=== PATIENT | female | born 1950 | race Caucasian/White ===

== ENCOUNTER → 2016-12-09 | Outpatient (REF) | payer OTHER | LOC: M LAB REF 17:02 | PROVIDERS: ATTEND Physician Assistant | DX: J02.9 Acute pharyngitis, unspecified (principal) ==

== ENCOUNTER → 2016-12-24 | Outpatient (REF) | payer OTHER | LOC: M LAB REF 11:46 | PROVIDERS: ATTEND Internal Medicine | DX: D51.9 Vitamin B12 deficiency anemia, unspecified (principal) ==

== ENCOUNTER → 2017-01-09 | Outpatient (REF) | payer OTHER | LOC: M LAB REF 10:48 | PROVIDERS: ATTEND Internal Medicine | DX: E87.5 Hyperkalemia (principal); M54.2 Cervicalgia ==

== ENCOUNTER → 2017-01-16 | Outpatient (REF) | payer OTHER | LOC: M LAB REF 16:23 | PROVIDERS: ATTEND Internal Medicine | DX: M54.2 Cervicalgia (principal); E78.5 Hyperlipidemia, unspecified ==

== ENCOUNTER → 2017-07-29 | Outpatient (CLI) | payer OTHER ==
--- NOTE | 2017-07-29 09:31 | REPMRS ---
Patient History The patient states she had a clinical breast exam in 05/31 No known family history of cancer. Digital Woman Screen Mammo: July 29, 2017 - Exam #: [id number] Bilateral CC and MLO view(s) were taken. Technologist: Lynn Hayes, Technologist Prior study comparison: June 03, 2016, digital woman screen mammo performed at [facility] to [facility]. March 19, 2015, digital woman screen mammo performed at [facility] to [facility]. FINDINGS: There are scattered fibroglandular densities. There has been no change in the appearance of the mammogram from the prior studies. There is a mild amount of residual fibroglandular tissue which is fairly symmetric. There is no interval development of dominant mass, architectural distortion, or clustered microcalcification suggestive of malignancy. ASSESSMENT: BI-RADS/ACR category 1 mammogram. Negative. Recommendation Routine screening mammogram in 1 year (for women over age 40). This mammogram was interpreted with the aid of an FDA-approved computer-aided dectection system. Electronically Signed By: Shawn Iniguez MD 07/29/17 0931
== END ==
LOC: M WHC 07:51
PROVIDERS: ATTEND Internal Medicine
DX: Z12.31 Encounter for screening mammogram for malignant neoplasm of breast (principal)

== ENCOUNTER → 2018-05-28 | Outpatient (REF) | payer OTHER ==
[2018-05-28 15:21] LABS: CPK CREATINE PHOSPHOKINASE 277 U/L (26-192); MB/CK RELATIVE INDEX 1.26 (< OR =4); TROPONIN I < 0.02 NG/ML (< 0.10)
== END ==
LOC: M LAB REF 14:55
DX: R00.2 Palpitations (principal)
CPT/HCPCS: 82553

== ENCOUNTER → 2018-07-30 | Outpatient (CLI) | payer OTHER | LOC: M WHC 07:52 | DX: Z12.31 Encounter for screening mammogram for malignant neoplasm of breast (principal) | CPT/HCPCS: 77067 ==

== ENCOUNTER → 2018-11-09 | Outpatient (REF) | payer OTHER | LOC: M LAB REF 10:31 | PROVIDERS: ATTEND Physician Assistant | DX: R30.0 Dysuria (principal) ==

== ENCOUNTER 2018-12-22 10:10 | Inpatient (IN) | payer OTHER, MEDICARE ==
[~2018-12-22] VITALS: Ht 154.9 cm; Wt 80.6 kg
[~2018-12-22 10:10] MED LIST: FOSA70TA PO; HYDR12.55 PO; SIMV10TA2 PO
[2018-12-22 12:02] VITALS: BP 132/90
[2018-12-22] MEDS ORDERED: oxyCODONE 5MG TAB PO PRN (13:00)
[2018-12-22] MEDS ORDERED: CYCLOBENZAPRINE 5MG TABLET PO PRN (13:00)
[2018-12-22] MEDS ORDERED: TRAM50TA2 PO (13:36)
[2018-12-22] MEDS ORDERED: TIMOXEOPD OU (13:36)
[2018-12-22] MEDS ORDERED: CYCL5TAB PO (13:36)
[2018-12-22] MEDS ORDERED: XARE10TA PO (13:36)
[2018-12-22] MEDS ORDERED: SIMV10TA2 PO (13:36)
[2018-12-22 14:00] VITALS: BP 127/58
[2018-12-22] MEDS ORDERED: ONDANSETRON 4 MG TAB (S0181) PO PRN (14:30)
[2018-12-22] MEDS ORDERED: ACETAMINOPHEN TAB 650MG DOSE (2X325MG) PO PRN (14:30)
[2018-12-22] MEDS ORDERED: BISACODYL 5 MG TAB PO PRN (14:30)
[2018-12-22] MEDS ORDERED: MOM 30ML SUSPENSION UDC PO PRN (14:30)
--- NOTE | 2018-12-22 15:05 | HPEPDOC ---
Bottle Gauger Note DATE OF ADMISSION: Dec 22, 2018 at 12:02 SOURCE OF ADMISSION INFORMATION:patient, [facility] records CHIEF COMPLAINT: bilateral hip fracture HISTORY OF PRESENT ILLNESS: 68F with pmh osteoporosis on bisphosphonate, HLD, and chronic ITP s/p splenectomy 2011 who fell at home and initially presented to [facility] ED on 12/15/18 where hip/pelvix X-rays revealed, "There is a transverse, displaced and foreshortened fracture of the right mid femoral shaft and a transverse displaced fracture of the left proximal femoral metaphysis. Underlying age-related degenerative changes of the pelvis and hips noted." She was transferred to [facility] where she was cleared by medicine and orthopedics was consulted. She then underwent an ORIF of the left subtrochanteric femur fracture with intramedullary aime, a left proximal femur osteotomy, and an ORIF of the right fe moral shaft with OM aime and prophylactic treatment of an impending right proximal femur fracture with IM aime placement. There were no post-op complication and patient was made WBAT to bilateral LE and placed on DVT prophylaxis. She continued to have bilateral thigh muscle spasms which she reports is a side effect from her Zocor, but wishes to continue on the medication for her recently elevated cholesterol levels. Her hydrochlorothiazide was held for soft BPs and she was given 2 units of rbcs for blood loss anemia. She had post-op atelectasis with fevers which resolved with incentive spirometry and supplemental oxygen. She was evaluated by therapy and found to be below her baseline level of function requiring assistance with ambulation and ADLs. She was deemed medically appropriate for discharge to ARU on 12/22/18. REVIEW OF SYSTEMS: The following is a completed review of systems and has been reviewed. Review of systems otherwise unremarkable. PAIN: Patient self reports bilateral thigh cramping EYES: Negative for recent vision changes EARS, NOSE, & THROAT:denies rhinorrhea, throat pain or dysphagia CARDIOVASCULAR: denies chest pain or palpitations PULMONARY: Negative. Denies shortness of breath or cough GASTROINTESTINAL: Negative for constipation or diarrhea GENITOURINARY: Negative for dysuria MUSCULOSKELETAL: bilateral femur fractures NEUROLOGICAL: no tremor or seizure activity HEMATOLOGICAL: anemia SKIN: bilateral hip incisions and grace-wound blisters PSYCHIATRIC: Unremarkable All other review of systems found to be negative. PAST MEDICAL HISTORY: as per HPI PAST SURGICAL HISTORY: none ALLERGIES: Please see below. MEDICATIONS: Please see below. FAMILY HISTORY: CHF and arthritis SOCIAL HISTORY: Currently works as payroll accountant, denies smoking/ETOH/drugs, lives alone DIET: Regular PHYSICAL EXAMINATION: VITAL SIGNS: Please see below. GENERAL: Pleasant and cooperative. No acute distress. HEENT: PERRL. Extraocular movements intact. Clear conjunctiva CARDIOVASCULAR: Regular rate and rhythm. No murmurs, rubs, or gallops LUNGS: Clear to auscultation bilaterally. No wheezes. No rhonchi ABDOMEN: Soft, nontender, nondistended. Positive bowel sounds. Normal active bowel sounds NEUROLOGICAL: Alert and oriented times three. Cranial nerves II through XII isabella ssly intact. Sensation grossly intact including bilateral first web space EXTREMITIES: 5\\5 strength bilateral upper extremities. 5\\5 strength bilat DF and EHL, >4/5 knee extension however limited overall due to surgery. SKIN: bilateral incisions with grace-wound blisters, no induration, sacrum without ulcer IMAGING: Imaging documentation personally reviewed by record FUNCTIONAL STATUS: Premorbid: Independent with all activities of daily life as well as mobility On Admission: Requiring assist of 2 to stand with RW, Mod-Max assist for functional transfers. GOALS: Mod-I with RW for ambulation household distances, Supervision with stairs, Mod-I for bathing, toileting, grooming, medical optimization, pain management, family training, assess for DME needs. ASSESSMENT:68-year-old F with past medical history of osteoporosis who presents status post fall with bilateral femur fractures PLAN: 1. Rehab: PT/OT, assess for DME- 2. Ortho: s.p bilateral femur ORIF on 12/16/18 WBAT, f/u with ortho in 2 weeks 3. Neuro: stable- monitor for delirium 4. Cardio; pmh HLD on Zocor, however complaining of chronic hx muscle cramping, will c/u for now- holding HCTZ for now as well as recent hx of soft BPs-medicine consulted 5. Resp: recent fever with atelectasis- encourge incentive spirometry, stable now 6. : f/u admission UA and UCx monitor PVRs 7. GI ppx: Protonix, bowel meds 8. DVT ppx: Xarelto x 6 weeks, TEds 9. Skin: daily dressing changes, will try paper tape to secure as concerned for allergic reaction to adhesive causing blister formation at areas of contact with adhesive 10. Pain: tramadol, Tylenol, ice, will trial gabapentin 100mh QHS 11. Rheum: pmh osteoporosis, will add Calcium and vitamin D 11. Dispo: TBD POST ADMISSION PHYSICIAN EVALUATION: Medical and functional status: Description of medical status, medical assessment: As above. Rehabilitation diagnosis and current and prior cold morbid medical conditions as above. Risk of complications and plans to mitigate them as above. Description of functional status current status is as above. Prior status as above. Status compared to preadmission: There are no clinically significant differences between the patient's current status and the information described on the prea dmission screening document. Treatment plan anticipated: Treatment plan is as described above. Required disciplines including physical therapy, occupational therapy, others as noted above. Intensity of services: 3 hours a day, 6 days a week. Special considerations: There are no specific special or safety considerations that would likely preclude immediate implementation of an intensive rehabilitation program or subsequently influence the plan of care ATTESTATION: Considering all the information above, it is my best judgment that this patient requires intensive rehabilitation therapy as described above and an inpatient hospital environment due to the complexity of nursing, medical, and rehabilitation needs required by the patient. Furthermore, this patient can reasonably be expected to participate in an benefit from an inpatient rehabilitation stay with an interdisciplinary team approach to the delivery of rehabilitation care under the direction and supervision of rehabilitation physician. PROGNOSIS: Excellent ESTIMATED LENGTH OF STAY:24-28 days. PROJECTED DISCHARGE DESTINATION: Home with family support and any durable medical equipment required to increase functional safety and mobility TIME SPENT COUNSELING AND COORDINATING INITIAL CARE: Greater than 70 minutes. Vital Signs Vital Sign - Last 24 Hours 12/22/18 12/22/18 12:02 14:00 Temp 97.2 98.6 Pulse 88 84 Resp 16 16 B/P (MAP) 132/90 (104) 127/58 (81) Pulse Ox 93 98 Home Medications Scheduled Rivaroxaban (Xarelto) 10 Mg Tablet, 10 MG PO QPM, (Reported) TAKE WITH DINNER Simvastatin (Simvastatin) 10 Mg Tablet, 10 MG PO QHS, (Reported) Timolol Maleate (Timolol Maleate) 5 Ml Diane.gel, 1 DROP OU DAILY, (Reported) Scheduled PRN Cyclobenzaprine HCl (Cyclobenzaprine HCl) 5 Mg Tablet, 5 MG PO BID PRN for MUSCLE SPASMS, (Reported) Tramadol HCl (Tramadol HCl) 50 Mg Tablet, 50 MG PO Q6H PRN for pain, (Reported) Allergies Coded Allergies: oxycodone (Unverified Adverse Reaction, Mild, N/V, 12/22/18) OK POLANCO MD Dec 22, 2018 15:05
--- NOTE | 2018-12-22 15:38 | CR ---
DATE OF CONSULTATION: 12/22/2018 CONSULTATION REPORT FOR: Dr. Gusman PRIMARY CARE PROVIDER: Dr. Ursula Kirk This is a hospitalist consult for medical care on Inés Alanis who had bilateral femur fractures treated at [facility] and transferred back here for rehabilitation. She has a past medical history significant for chronic idiopathic thrombocytic purpura (ITP), status post splenectomy in 2011, hyperlipidemia, and osteoporosis on bisphosphonate therapy. She had some acute blood loss anemia and she was transfused at [facility]. She had some atelectasis, resolved with spirometry. MEDICATIONS: - Xarelto 10 mg daily - simvastatin 10 mg at bedtime - Timolol eye drops - cyclobenzaprine 5 mg twice a day as needed - tramadol 50 mg every six hours as needed ALLERGIES: CODEINE. SOCIAL HISTORY: Nonsmoker. No alcohol. CODE STATUS: Full code. PHYSICAL EXAMINATION: VITAL SIGNS: Per flow sheet. GENERAL APPEARANCE: She is alert, conversant, in no distress. LUNGS: Clear. HEART: Regular rate and rhythm without murmur. ABDOMEN: Soft, nontender. EXTREMITIES: No peripheral edema. Good distal pulses. MENTAL STATUS EXAMINATION: Unremarkable. LABORATORY DATA: From [facility] were reviewed. IMPRESSION: 1. History of idiopathic thrombocytic purpura (ITP), status post splenectomy. She is anticoagulated on Xarelto. Baseline laboratories ordered. 2. Hyperlipidemia. Continue with simvastatin. She is on a dose that is no longer advised under current hyperlipidemia guidelines but we will defer to her primary as far as adjusting this. Hospitalist service available for medical problems should they arise.
[2018-12-22] MEDS: ACETAMINOPHEN 500 MG TAB PO SCH ×2 (16:09→20:39)
[2018-12-22] MEDS: PANTOPRAZOLE 40MG TAB (PROTONIX) PO SCH (16:09)
[2018-12-22] MEDS: RIVAROXABAN 10 MG TAB (XARELTO) PO SCH (17:04)
[2018-12-22 20:00] VITALS: BP 126/58
[2018-12-22 20:28] LABS: APPEARANCE, URINE CLEAR (CLEAR); BACTERIA, URINE AUTO 1+ (NEGATIVE); BILIRUBIN, URINE AUTO NEGATIVE (NEGATIVE); BLOOD, URINE BLOOD 2+ (NEGATIVE); COLOR, URINE STRAW (YELLOW); GLUCOSE, URINE (UA) AUTO NEGATIVE (NEGATIVE); KETONE, URINE AUTO NEGATIVE (NEGATIVE); LEUKOCYTE ESTERASE, URINE AUTO 2+ (NEGATIVE); MUCUS, URINE SMALL (NEGATIVE); NITRITE, URINE AUTO NEGATIVE (NEGATIVE); PROTEIN, URINE AUTO NEGATIVE (NEGATIVE); RBC, URINE AUTO 4 /HPF (0-3); SPECIFIC GRAVITY URINE AUTO 1.006 (1.002-1.035); SQUAMOUS EPITHELIAL CELL UR AU 1 /HPF (0-6); UROBILINOGEN, URINE AUTO 0.2 mg/dL (0.0-2.0); WBC, URINE AUTO 7 /HPF (0-3)
[2018-12-22] MEDS: SIMVASTATIN 10 MG TAB PO SCH (20:39)
[2018-12-22] MEDS: CALCIUM/VITAMIN D 500 MG TAB PO SCH (20:39)
[2018-12-22] MEDS: MAGNESIUM OXIDE 400 MG TAB (MAG-OX) PO SCH (20:40)
[2018-12-22] MEDS: DOCUSATE SODIUM 100 MG CAP PO SCH (20:40)
[2018-12-22] MEDS: BOUDREAUX'S BUTT PASTE 4OZ TOP SCH (20:40)
[2018-12-22] MEDS ORDERED: SIMVASTATIN 10 MG TAB PO SCH (21:00)
[2018-12-22] MEDS ORDERED: GABAPENTIN 100 MG CAP PO SCH (21:00)
[2018-12-23 06:00] VITALS: BP 132/64
[2018-12-23 06:35] LABS: BASO # 0.1 10^3/uL (0.0-0.2); BASO % 0.6 % (0.0-1.0); EOS # 0.5 10^3/uL (0.0-0.50); EOS % 4.1 % (0.0-3.0); HEMATOCRIT 29.5 % (36.0-47.0); HEMOGLOBIN 9.7 g/dl (12.0-15.5); LYMPH # 1.8 10^3/uL (1.5-4.5); LYMPH % 15.6 % (24.0-44.0); MEAN CORPUSCULAR HEMOGLOBIN 31.4 pg (27.0-33.0); MEAN CORPUSCULAR HGB CONC 32.9 g/dl (32.0-36.5); MEAN CORPUSCULAR VOLUME 95.5 fl (80.0-96.0); MONO # 1.4 10^3/uL (0.0-0.8); MONO % 12.4 % (0.0-5.0); NEUTROPHILS # 7.4 10^3/uL (1.8-7.7); NEUTROPHILS % 66.6 % (36.0-66.0); PLATELET COUNT, AUTOMATED 469 10^3/uL (150-450); RED BLOOD COUNT 3.09 10^6/uL (4.00-5.40); WHITE BLOOD COUNT 11.2 10^3/uL (4.0-10.0)
[2018-12-23] MEDS: traMADol 50 MG TAB PO PRN ×3 (06:38→21:12)
[2018-12-23 07:00] LABS: ALBUMIN 2.5 GM/DL (3.2-5.2); ALT/SGPT 56 U/L (12-78); BILIRUBIN,TOTAL 0.5 MG/DL (0.2-1.0); BLOOD UREA NITROGEN 14 MG/DL (7-18); CALCIUM LEVEL 8.8 MG/DL (8.8-10.2); CARBON DIOXIDE LEVEL 28 MEQ/L (21-32); CHLORIDE LEVEL 107 MEQ/L (98-107); GLOMERULAR FILTRATION RATE > 60.0 (>45); GLUCOSE, FASTING 89 MG/DL (70-100); SODIUM LEVEL 139 MEQ/L (136-145); TOTAL PROTEIN 6.6 GM/DL (6.4-8.2)
[2018-12-23] MEDS: DOCUSATE SODIUM 100 MG CAP PO SCH ×2 (07:55→21:12)
[2018-12-23] MEDS ORDERED: TIMOLOL XE GFS 0.5% OPHTH 5 ML OU SCH (09:00)
[2018-12-23] MEDS: CALCIUM/VITAMIN D 500 MG TAB PO SCH ×2 (09:20→21:11)
[2018-12-23] MEDS: MAGNESIUM OXIDE 400 MG TAB (MAG-OX) PO SCH ×2 (09:21→21:11)
[2018-12-23] MEDS: PANTOPRAZOLE 40MG TAB (PROTONIX) PO SCH (09:21)
[2018-12-23] MEDS: ACETAMINOPHEN 500 MG TAB PO SCH ×3 (09:21→21:12)
[2018-12-23] MEDS: BOUDREAUX'S BUTT PASTE 4OZ TOP SCH ×2 (09:22→21:13)
--- NOTE | 2018-12-23 10:23 | IPNPDOC ---
PM&R Progress Note DATE OF SERVICE: Dec 23, 2018 Yarn Conditioner Progress Note Subjective: Patient reports her leg cramping is still there and is interested in increasing gabapentin and adding a muscle rub. REVIEW OF SYSTEMS: The following is a completed review of systems and has been reviewed. Review of systems otherwise unremarkable. PAIN: Patient self reports bilateral thigh cramping EYES: Negative for recent vision changes EARS, NOSE, & THROAT:denies rhinorrhea, throat pain or dysphagia CARDIOVASCULAR: denies chest pain or palpitations PULMONARY: Negative. Denies shortness of breath or cough GASTROINTESTINAL: Negative for constipation or diarrhea GENITOURINARY: Negative for dysuria MUSCULOSKELETAL: bilateral femur fractures NEUROLOGICAL: no tremor or seizure activity HEMATOLOGICAL: anemia SKIN: bilateral hip incisions and grace-wound blisters PSYCHIATRIC: Unremarkable All other review of systems found to be negative. PHYSICAL EXAMINATION: VITAL SIGNS: Please see below. GENERAL: Pleasant and cooperative. No acute distress. HEENT: PERRL. Extraocular movements intact. Clear conjunctiva CARDIOVASCULAR: Regular rate and rhythm. No murmurs, rubs, or gallops LUNGS: Clear to auscultation bilaterally. No wheezes. No rhonchi ABDOMEN: Soft, nontender, nondistended. Positive bowel sounds. Normal active bowel sounds NEUROLOGICAL: Alert and oriented times three. Cranial nerves II through XII grossly intact. Sensation grossly intact including bilateral first web space EXTREMITIES: 5\5 strength bilateral upper extremities. 5\5 strength bilat DF and EHL, >4/5 knee extension however limited overall due to surgery. (-) Brunilda's bilat SKIN: bilateral incisions with grace-wound blisters, no induration, sacrum without ulcer ASSESSMENT:68-year-old F with past medical history of osteoporosis who presents status post fall with bilateral femur fractures PLAN: 1. Rehab: PT/OT, assess for DME- able to ambulate well with RW, however having significant difficulty with bed mobility and standing up from a chair 2. Ortho: s.p bilateral femur ORIF on 12/16/18 WBAT, f/u with ortho in 2 weeks 3. Neuro: stable- monitor for delirium 4. Cardio; pmh HLD on Zocor, however complaining of chronic hx muscle cramping, will c/u for now- holding HCTZ for now as well as recent hx of soft BPs-medicine consulted 5. Resp: recent fever with atelectasis- encourge incentive spirometry, stable now 6. : f/u admission UA and UCx monitor PVRs 7. GI ppx: Protonix, bowel meds 8. DVT ppx: Xarelto x 6 weeks, TEDs, Doppler ordered today 9. Skin: daily dressing changes, will try paper tape to secure as concerned for allergic reaction to adhesive causing blister formation at areas of contact with adhesive 10. Pain: tramadol, Tylenol, ice, will increase gabapentin 100mg to TID for muscel cramping and add menthol salicylate 11. Rheum: pmh osteoporosis, will add Calcium and vitamin D 11. Dispo: TBD Allergies Coded Allergies: oxycodone (Unverified Adverse Reaction, Mild, N/V, 12/22/18) Vital Signs Vital Signs Date Time Temp Pulse Resp B/P (MAP) Pulse Ox O2 Delivery O2 Flow Rate FiO2 12/23/18 07:08 18 12/23/18 06:00 98.0 91 132/64 (86) 96 Laboratory Data CBC/BMP Laboratory Tests 12/23/18 06:07 Red Blood Count 3.09 L, Mean Corpuscular Volume 95.5, Mean Corpuscular Hemoglobin 31.4, Mean Corpuscular Hemoglobin Concent 32.9, Red Cell Distribution Width 15.0 H, Neutrophils (%) (Auto) 66.6 H, Lymphocytes (%) (Auto) 15.6 L, Monocytes (%) (Auto) 12.4 H, Eosinophils (%) (Auto) 4.1 H, Basophils (%) (Auto) 0.6, Neutrophils # (Auto) 7.4, Lymphocytes # (Auto) 1.8, Monocytes # (Auto) 1.4 H, Eosinophils # (Auto) 0.5, Basophils # (Auto) 0.1, Calcium Level 8.8, Aspartate Amino Transf (AST/SGOT) 55 H, Alanine Aminotransferase (ALT/SGPT) 56, Alkaline Phosphatase 67, Total Bilirubin 0.5, Total Protein 6.6, Albumin 2.5 L Labs 24H Laboratory Tests 2 12/22/18 20:07: Urine Appearance CLEAR, Urine Color STRAW, Urine pH 7.0, Urine Specific [employer] 1.006, Urine Protein NEGATIVE, Urine Glucose (UA) NEGATIVE, Urine Ketones NEGATIVE, Urine Urobilinogen 0.2, Urine Bilirubin NEGATIVE, Urine Leukocyte Esterase 2+H, Urine Blood 2+H, Urine Nitrite NEGATIVE, Urine WBC (Auto) 7H, Urine RBC (Auto) 4H, Urine Hyaline Casts (Auto) 0, Urine Bacteria (Auto) 1+H, Urine Squamous Epithelial Cells 1, Urine Mucus (Auto) SMALL, Urine Sperm (Auto) 12/23/18 06:07: Immature Granulocyte % (Auto) 0.7, White Blood Count 11.2H, Red Blood Count 3.09L, Hemoglobin 9.7L, Hematocrit 29.5L, Mean Corpuscular Volume 95.5, Mean Corpuscular Hemoglobin 31.4, Mean Corpuscular Hemoglobin Concent 32.9, Red Cell Distribution Width 15.0H, Platelet Count 469H, Neutrophils (%) (Auto) 66.6H, Lymphocytes (%) (Auto) 15.6L, Monocytes (%) (Auto) 12.4H, Eosinophils (%) (Auto) 4.1H, Basophils (%) (Auto) 0.6, Neutrophils # (Auto) 7.4, Lymphocytes # (Auto) 1.8, Monocytes # (Auto) 1.4H, Eosinophils # (Auto) 0.5, Basophils # (Auto) 0.1, Nucleated Red Blood Cells % (auto) 0.4H, Anion Gap 4L, Glomerular Filtration Rate > 60.0, Blood Urea Nitrogen 14, Creatinine 0.80, Sodium Level 139, Pota ssium Level 4.0, Chloride Level 107, Carbon Dioxide Level 28, Calcium Level 8.8, Aspartate Amino Transf (AST/SGOT) 55H, Alanine Aminotransferase (ALT/SGPT) 56, Alkaline Phosphatase 67, Total Bilirubin 0.5, Total Protein 6.6, Albumin 2.5L, Albumin/Globulin Ratio 0.61L Microbiology Microbiology 12/22/18 Urine Culture, Received Pending Current Medications Current Medications Current Medications Acetaminophen (Tylenol Tab) 650 mg DAILY PRN PO fever/MILD PAIN (PS 1-4); Start 12/22/18 at 14:30 Acetaminophen (Tylenol Tab) 1,000 mg TID PO Last administered on 12/23/18at 09:21; Start 12/22/18 at 16:00 Bisacodyl (Dulcolax Tab) 5 mg DAILYPRN PRN PO CONSTIPATION; Start 12/22/18 at 14:30 Calcium/Vitamin D (Oscal D) 1,000 mg BID PO Last administered on 12/23/18at 09:20; Start 12/22/18 at 21:00 Cyclobenzaprine HCl (Flexeril) 5 mg BID PRN PO SPASMS; Start 12/22/18 at 13:00; Stop 12/22/18 at 14:14; Status DC Docusate Sodium (Colace) 100 mg BID PO ; Start 12/22/18 at 21:00 Gabapentin (Neurontin) 100 mg QHS PO Last administered on 12/22/18at 20:40; Start 12/22/18 at 21:00 Home Med (Med Rec Complete!) ASDIRECTED XX ; Start 12/22/18 at 13:45; Stop 12/22/18 at 13:45; Status DC Magnesium Hydroxide (Milk Of Magnesia) 30 ml DAILYPRN PRN PO CONSTIPATION; Start 12/22/18 at 14:30 Magnesium Oxide (Mag-Ox) 400 mg BID PO Last administered on 12/23/18at 09:21; Start 12/22/18 at 21:00 Ondansetron HCl (Zofran) 4 mg Q6HP PRN PO NAUSEA; Start 12/22/18 at 14:30 Oxycodone HCl (Roxicodone, Oxyir) 5 mg Q4HP PRN PO PAIN; Start 12/22/18 at 13:00; Stop 12/22/18 at 14:14; Status DC Pantoprazole Sodium (Protonix) 40 mg DAILY PO Last administered on 12/23/18at 09:21; Start 12/22/18 at 09:00 Rivaroxaban (Xarelto) 10 mg DAILY@18 PO Last administered on 12/22/18at 17:04; Start 12/22/18 at 18:00 Simvastatin (Zocor) 10 mg QHS PO ; Start 12/22/18 at 21:00; Stop 12/22/18 at 21:00; Status DC Simvastatin (Zocor) 10 mg QHS PO Last administered on 12/22/18at 20:39; Start 12/22/18 at 21:00 Timolol Maleate (Timoptic-Xe 0.5% Ophth Gfs) 1 drop DAILY OU ; Start 12/23/18 at 09:00 Tramadol HCl (Ultram) 50 mg Q4HP PRN PO MODERATE PAIN (PS 5-7) Last administered on 12/23/18at 06:38; Start 12/22/18 at 14:15 Zinc Oxide (Boudreauxs Butt Paste) apply to sacrum BID TOP Last administered on 12/23/18at 09:22; Start 12/22/18 at 21:00 KO POLANCO MD Dec 23, 2018 10:23
[2018-12-23] MEDS ORDERED: TIMO0.5S29 OU (11:12)
[2018-12-23 14:00] VITALS: BP 123/57
[2018-12-23] MEDS: TIMOLOL MALEATE 0.5% OPHTH SOLN 5 ML OU SCH (16:15)
[2018-12-23] MEDS: RIVAROXABAN 10 MG TAB (XARELTO) PO SCH (18:14)
[2018-12-23 18:35] LABS: MAGNESIUM LEVEL 2.4 MG/DL (1.8-2.4)
--- NOTE | 2018-12-23 19:08 | IPN ---
DATE: 12/23/2018 SUBJECTIVE: The patient is seen and examined in the room today. The patient stated that she has had a history of frequent falls. She is not sure whether she tripped over something or if she slipped, but she had a fall. She landed on the left knee and then because of the strong fall force, she also landed on the right knee. The patient was found to have bilateral femur fractures. The patient had bilateral femur repair at [facility] approximately 1 week ago. At the time of the encounter, the patient stated that her pain is under fairly good control. Denies any acute complaints. Denies any fevers or chills. OBJECTIVE: VITAL SIGNS: Temperature is 98, pulse 91, respirations 17, blood pressure 132/64, pulse oximetry 96% on room air. GENERAL: The patient is alert, awake, comfortable. HEENT: Normocephalic, atraumatic. Extraocular motors are grossly intact. Wears corrective lenses. CARDIOVASCULAR: Positive S1, S2. Regular rate. LUNGS: Clear to auscultation bilaterally. ABDOMEN: Soft, nontender. Bowel sounds present. EXTREMITIES: No significant edema appreciated bilaterally. LABORATORY DATA: WBC 11.2, hemoglobin 9.7, hematocrit 29.5, platelet count is 469. Sodium is 139, potassium 4.0, chloride 107, carbon dioxide 28, BUN 14, creatinine 0.8, GFR greater than 60, fasting glucose 89, calcium 8.8, total bilirubin 0.5, AST 55, ALT 56, alkaline phosphatase is 67, total protein 6.6, albumin 2.5. Microbiology: Urine culture is pending. ASSESSMENT AND PLAN: 1. Bilateral femur fractures. The patient is admitted to acute rehabilitation unit for acute rehabilitation. Please defer activity level, pain control, anticoagulation and diet as per ARU recommendations. 2. History of idiopathic thrombocytopenic purpura (ITP), status post splenectomy in 2011. 3. Hyperlipidemia. On statin. 4. Osteoporosis. The patient is on calcium and vitamin D. 5. Deep vein thrombosis (DVT) prophylaxis. The patient is currently on Xarelto.
[2018-12-23 19:30] VITALS: BP 111/55
[2018-12-23] MEDS: ANALGESIC BALM CRM 120 GM TOP SCH (21:11)
[2018-12-23] MEDS: GABAPENTIN 100 MG CAP PO SCH (21:11)
[2018-12-23] MEDS: SIMVASTATIN 10 MG TAB PO SCH (21:11)
[2018-12-24 04:51] VITALS: BP 132/63
--- NOTE | 2018-12-24 06:30 | REP ---
Clinical: Immobility . Technique: Iniguez scale and color Doppler evaluation using linear high frequency transducer. Findings: Ultrasound examination of the right and left lower extremity deep venous structures from the common femoral vein to the popliteal vein demonstrates normal compressibility flow and wave patterns in response to respiration and augmentation. There is no evidence for deep venous thrombosis. Impression: No evidence for deep venous thrombosis involving right or left lower extremity. Electronically Signed by Goran Torres MD 12/24/2018 06:21 A
[2018-12-24] MEDS: traMADol 50 MG TAB PO PRN (06:43)
[2018-12-24 07:10] LABS: BLOOD UREA NITROGEN 20 MG/DL (7-18); CALCIUM LEVEL 8.8 MG/DL (8.8-10.2); CARBON DIOXIDE LEVEL 27 MEQ/L (21-32); CHLORIDE LEVEL 109 MEQ/L (98-107); CREATININE FOR GFR 0.77 MG/DL (0.55-1.30); GLOMERULAR FILTRATION RATE > 60.0 (>45); GLUCOSE, FASTING 95 MG/DL (70-100); POTASSIUM SERUM 4.2 MEQ/L (3.5-5.1); SODIUM LEVEL 141 MEQ/L (136-145)
[2018-12-24 07:19] LABS: BASO # 0.1 10^3/uL (0.0-0.2); BASO % 0.6 % (0.0-1.0); EOS # 0.5 10^3/uL (0.0-0.50); EOS % 4.7 % (0.0-3.0); HEMATOCRIT 28.2 % (36.0-47.0); HEMOGLOBIN 9.2 g/dl (12.0-15.5); LYMPH # 2.1 10^3/uL (1.5-4.5); LYMPH % 21.3 % (24.0-44.0); MEAN CORPUSCULAR HEMOGLOBIN 32.1 pg (27.0-33.0); MEAN CORPUSCULAR HGB CONC 32.6 g/dl (32.0-36.5); MEAN CORPUSCULAR VOLUME 98.3 fl (80.0-96.0); MONO # 1.5 10^3/uL (0.0-0.8); NEUTROPHILS # 5.7 10^3/uL (1.8-7.7); NEUTROPHILS % 57.5 % (36.0-66.0); PLATELET COUNT, AUTOMATED 494 10^3/uL (150-450); RED BLOOD COUNT 2.87 10^6/uL (4.00-5.40); WHITE BLOOD COUNT 9.8 10^3/uL (4.0-10.0)
[2018-12-24] MEDS: ACETAMINOPHEN 500 MG TAB PO SCH ×3 (08:48→22:19)
[2018-12-24] MEDS: PANTOPRAZOLE 40MG TAB (PROTONIX) PO SCH (08:48)
[2018-12-24] MEDS: CALCIUM/VITAMIN D 500 MG TAB PO SCH ×2 (08:48→22:20)
[2018-12-24] MEDS: GABAPENTIN 100 MG CAP PO SCH ×3 (08:48→22:20)
[2018-12-24] MEDS: MAGNESIUM OXIDE 400 MG TAB (MAG-OX) PO SCH ×2 (08:48→22:20)
[2018-12-24] MEDS: TIMOLOL MALEATE 0.5% OPHTH SOLN 5 ML OU SCH (08:49)
[2018-12-24] MEDS: ANALGESIC BALM CRM 120 GM TOP SCH ×3 (08:49→22:21)
[2018-12-24] MEDS: BOUDREAUX'S BUTT PASTE 4OZ TOP SCH ×2 (08:50→21:00)
[2018-12-24] MEDS: DOCUSATE SODIUM 100 MG CAP PO SCH ×2 (08:50→21:00)
--- NOTE | 2018-12-24 10:45 | IPNPDOC ---
PM&R Progress Note DATE OF SERVICE: Dec 24, 2018 Breast Trimmer Progress Note Subjective: Patient reports her leg cramping is slightly better today and that she does not have burning with urination, a sense of urgency, or frequency. REVIEW OF SYSTEMS: The following is a completed review of systems and has been reviewed. Review of systems otherwise unremarkable. PAIN: Patient self reports bilateral thigh cramping EYES: Negative for recent vision changes EARS, NOSE, & THROAT:denies rhinorrhea, throat pain or dysphagia CARDIOVASCULAR: denies chest pain or palpitations PULMONARY: Negative. Denies shortness of breath or cough GASTROINTESTINAL: Negative for constipation or diarrhea GENITOURINARY: Negative for dysuria MUSCULOSKELETAL: bilateral femur fractures NEUROLOGICAL: no tremor or seizure activity HEMATOLOGICAL: anemia SKIN: bilateral hip incisions and grace-wound blisters PSYCHIATRIC: Unremarkable All other review of systems found to be negative. PHYSICAL EXAMINATION: VITAL SIGNS: Please see below. GENERAL: Pleasant and cooperative. No acute distress. HEENT: PERRL. Extraocular movements intact. Clear conjunctiva CARDIOVASCULAR: Regular rate and rhythm. No murmurs, rubs, or gallops LUNGS: Clear to auscultation bilaterally. No wheezes. No rhonchi ABDOMEN: Soft, nontender, nondistended. Positive bowel sounds. Normal active bowel sounds NEUROLOGICAL: Alert and oriented times three. Cranial nerves II through XII grossly intact. Sensation grossly intact including bilateral first web space EXTREMITIES: 5\5 strength bilateral upper extremities. 5\5 strength bilat DF and EHL, >4/5 knee extension however limited overall due to surgery. (-) Brunilda's bilat SKIN: bilateral incisions with grace-wound blisters, no induration, sacrum without ulcer ASSESSMENT:68-year-old F with past medical history of osteoporosis who presents status post fall with bilateral femur fractures PLAN: 1. Rehab: PT/OT, assess for DME- able to ambulate well with RW, however having significant difficulty with bed mobility and standing up from a chair 2. Ortho: s.p bilateral femur ORIF on 12/16/18 WBAT, f/u with ortho in 2 weeks 3. Neuro: stable- monitor for delirium 4. Cardio; pmh HLD on Zocor, however complaining of chronic hx muscle cramping, will c/u for now- holding HCTZ for now as well as recent hx of soft BPs-medicine consulted 5. Resp: recent fever with atelectasis- encourage incentive spirometry, stable now 6. : admission UA and UCx + ESBL E. Coli however no leukocytosis and no symptoms, patient reports taking Macrobid a month ago for a UTI, will hold off on treatment, monitor PVRs 7. GI ppx: Protonix, bowel meds 8. DVT ppx: Xarelto x 6 weeks, TEDs, Dopplers negative for DVT 9. Skin: daily dressing changes, will try paper tape to secure as concerned for allergic reaction to adhesive causing blister formation at areas of contact with adhesive 10. Pain: tramadol, Tylenol, ice, will increase gabapentin 100mg to TID for muscel cramping and add menthol salicylate 11. Rheum: pmh osteoporosis, will add Calcium and vitamin D 11. Dispo: TBD Allergies Coded Allergies: oxycodone (Unverified Adverse Reaction, Mild, N/V, 12/22/18) Vital Signs Vital Signs Date Time Temp Pulse Resp B/P (MAP) Pulse Ox O2 Delivery O2 Flow Rate FiO2 12/24/18 07:13 18 12/24/18 04:51 96.9 83 132/63 (86) 96 Laboratory Data CBC/BMP Laboratory Tests 12/24/18 06:25 Red Blood Count 2.87 L, Mean Corpuscular Volume 98.3 H, Mean Corpuscular Hemoglobin 32.1, Mean Corpuscular Hemoglobin Concent 32.6, Red Cell Distribution Width 15.4 H, Neutrophils (%) (Auto) 57.5, Lymphocytes (%) (Auto) 21.3 L, Monocytes (%) (Auto) 15.0 H, Eosinophils (%) (Auto) 4.7 H, Basophils (%) (Auto) 0.6, Neutrophils # (Auto) 5.7, Lymphocytes # (Auto) 2.1, Monocytes # (Auto) 1.5 H, Eosinophils # (Auto) 0.5, Basophils # (Auto) 0.1, Calcium Level 8.8 Labs 24H Laboratory Tests 2 12/24/18 06:25: Immature Granulocyte % (Auto) 0.9, White Blood Count 9.8, Red Blood Count 2.87L, Hemoglobin 9.2L, Hematocrit 28.2L, Mean Corpuscular Volume 98.3H, Mean Corpuscular Hemoglobin 32.1, Mean Corpuscular Hemoglobin Concent 32.6, Red Cell Distribution Width 15.4H, Platelet Count 494H, Neutrophils (%) (Auto) 57.5, Lymphocytes (%) (Auto) 21.3L, Monocytes (%) (Auto) 15.0H, Eosinophils (%) (Auto) 4.7H, Basophils (%) (Auto) 0.6, Neutrophils # (Auto) 5.7, Lymphocytes # (Auto) 2.1, Monocytes # (Auto) 1.5H, Eosinophils # (Auto) 0.5, Basophils # (Auto) 0.1, Nucleated Red Blood Cells % (auto) 0.5H, Anion Gap 5L, Glomerular Filtration Rate > 60.0, Blood Urea Nitrogen 20H, Creatinine 0.77, Sodium Level 141, P otassium Level 4.2, Chloride Level 109H, Carbon Dioxide Level 27, Calcium Level 8.8 Microbiology Microbiology 12/22/18 Urine Culture - Preliminary, Resulted E.coli Esbl Current Medications Current Medications Current Medications Acetaminophen (Tylenol Tab) 650 mg DAILY PRN PO fever/MILD PAIN (PS 1-4); Start 12/22/18 at 14:30 Acetaminophen (Tylenol Tab) 1,000 mg TID PO Last administered on 12/24/18at 08:48; Start 12/22/18 at 16:00 Bisacodyl (Dulcolax Tab) 5 mg DAILYPRN PRN PO CONSTIPATION; Start 12/22/18 at 14:30 Calcium/Vitamin D (Oscal D) 1,000 mg BID PO Last administered on 12/24/18at 08:48; Start 12/22/18 at 21:00 Cyclobenzaprine HCl (Flexeril) 5 mg BID PRN PO SPASMS; Start 12/22/18 at 13:00; Stop 12/22/18 at 14:14; Status DC Docusate Sodium (Colace) 100 mg BID PO ; Start 12/22/18 at 21:00 Gabapentin (Neurontin) 100 mg QHS PO Last administered on 12/22/18at 20:40; Sta rt 12/22/18 at 21:00; Stop 12/23/18 at 18:31; Status DC Gabapentin (Neurontin) 100 mg TID PO Last administered on 12/24/18at 08:48; Start 12/23/18 at 21:00 Home Med (Med Rec Complete!) ASDIRECTED XX ; Start 12/22/18 at 13:45; Stop 12/22/18 at 13:45; Status DC Magnesium Hydroxide (Milk Of Magnesia) 30 ml DAILYPRN PRN PO CONSTIPATION; Start 12/22/18 at 14:30 Magnesium Oxide (Mag-Ox) 400 mg BID PO Last administered on 12/24/18at 08:48; Start 12/22/18 at 21:00 Menthol/Methyl Salicylate (Bengay Cream) apply to top of thi... TID TOP Last administered on 12/24/18at 08:49; Start 12/23/18 at 21:00 Ondansetron HCl (Zofran) 4 mg Q6HP PRN PO NAUSEA; Start 12/22/18 at 14:30 Oxycodone HCl (Roxicodone, Oxyir) 5 mg Q4HP PRN PO PAIN; Start 12/22/18 at 13:00; Stop 12/22/18 at 14:14; Status DC Pantoprazole Sodium (Protonix) 40 mg DAILY PO Last administered on 12/24/18at 08:48; Start 12/22/18 at 09:00 Rivaroxaban (Xarelto) 10 mg DAILY@18 PO Last administered on 12/23/18at 18:14; Start 12/22/18 at 18:00 Simvastatin (Zocor) 10 mg QHS PO ; Start 12/22/18 at 21:00; Stop 12/22/18 at 21:00; Status DC Simvastatin (Zocor) 10 mg QHS PO Last administered on 12/23/18at 21:11; Start 12/22/18 at 21:00 Timolol Maleate (Timoptic 0.5% Ophth Diane) 1 drop DAILY OU Last administered on 12/24/18at 08:49; Start 12/23/18 at 09:00 Timolol Maleate (Timoptic-Xe 0.5% Ophth Gfs) 1 drop DAILY OU ; Start 12/23/18 at 09:00; Stop 12/23/18 at 11:54; Status DC Tramadol HCl (Ultram) 50 mg Q4HP PRN PO MODERATE PAIN (PS 5-7) Last administered on 12/24/18at 06:43; Start 4/10/19 at 14:15 Zinc Oxide (Boudreauxs Butt Paste) apply to sacrum BID TOP Last administered on 12/24/18at 08:50; Start 12/22/18 at 21:00 KO POLANCO MD Dec 24, 2018 10:45
[2018-12-24 14:00] VITALS: BP 118/57
--- NOTE | 2018-12-24 16:15 | IPNPDOC ---
Text Note Date of Service The patient was seen on 12/24/18. NOTE SUBJECTIVE: The patient is seen and examined in the room today. Patient has some bilateral thigh discomfort after the physical therapy. The pain is tolerable. Patient denies fever or chill. Denies dysuria, frequency or urgency. Patient did have UTI few months ago. OBJECTIVE: VITAL SIGNS: Listed below. GENERAL: The patient is alert, awake, comfortable. HEENT: Normocephalic, atraumatic. Extraocular motors are grossly intact. Wears corrective lenses. CARDIOVASCULAR: Positive S1, S2. Regular rate. LUNGS: Clear to auscultation bilaterally. ABDOMEN: Soft, nontender. Bowel sounds present. EXTREMITIES: No significant edema appreciated bilaterally. LABORATORY DATA: Listed below. Microbiology: Urine culture is positive for ESBL. ASSESSMENT AND PLAN: #. Bilateral femur fractures. - Continue rehabilitation in ARU. Defer activity level, pain control, anticoag ulation and diet as per ARU recommendations. # ESBL in urine culture - Patient is asymptomatic. No dysuria, frequency or urgency. No antibiotic treatment is needed at this moment. #. History of idiopathic thrombocytopenic purpura (ITP) - Status post splenectomy in 2011. #. Hyperlipidemia. On statin. #. Osteoporosis. The patient is on calcium and vitamin D. #. Deep vein thrombosis (DVT) prophylaxis. The patient is currently on Xarelto. VS,Fishbone, I+O VS, Fishbone, I+O Laboratory Tests 12/24/18 06:25 Red Blood Count 2.87 L, Mean Corpuscular Volume 98.3 H, Mean Corpuscular Hemoglobin 32.1, Mean Corpuscular Hemoglobin Concent 32.6, Red Cell Distribution Width 15.4 H, Neutrophils (%) (Auto) 57.5, Lymphocytes (%) (Auto) 21.3 L, Monocytes (%) (Auto) 15.0 H, Eosinophils (%) (Auto) 4.7 H, Basophils (%) (Auto) 0.6, Neutrophils # (Auto) 5.7, Lymphocytes # (Auto) 2.1, Monocytes # (Auto) 1.5 H, Eosinophils # (Auto) 0.5, Basophils # (Auto) 0.1, Calcium Level 8.8 Vital Signs Date Time Temp Pulse Resp B/P (MAP) Pulse Ox O2 Delivery O2 Flow Rate FiO2 12/24/18 14:00 97.0 90 17 118/57 (79) 31 I&O- Last 24 Hours up to 6 AM 12/24/18 06:00 Intake Total 1880 ml Output Total 875 ml Balance 1005 ml KAR KYLE DO Dec 24, 2018 16:15
[2018-12-24] MEDS: RIVAROXABAN 10 MG TAB (XARELTO) PO SCH (17:27)
[2018-12-24 20:00] VITALS: BP 123/58
[2018-12-24] MEDS: SIMVASTATIN 10 MG TAB PO SCH (22:20)
[2018-12-25 06:00] VITALS: BP 125/60
[2018-12-25] MEDS: traMADol 50 MG TAB PO PRN (06:55)
[2018-12-25] MEDS: DOCUSATE SODIUM 100 MG CAP PO SCH ×2 (09:00→20:12)
[2018-12-25] MEDS: BOUDREAUX'S BUTT PASTE 4OZ TOP SCH ×2 (09:00→20:11)
[2018-12-25] MEDS: CALCIUM/VITAMIN D 500 MG TAB PO SCH ×2 (10:26→20:11)
[2018-12-25] MEDS: MAGNESIUM OXIDE 400 MG TAB (MAG-OX) PO SCH ×2 (10:26→20:11)
[2018-12-25] MEDS: GABAPENTIN 100 MG CAP PO SCH ×3 (10:26→20:11)
[2018-12-25] MEDS: PANTOPRAZOLE 40MG TAB (PROTONIX) PO SCH (10:26)
[2018-12-25] MEDS: ACETAMINOPHEN 500 MG TAB PO SCH ×3 (10:27→20:11)
[2018-12-25] MEDS: ANALGESIC BALM CRM 120 GM TOP SCH ×3 (10:27→20:11)
[2018-12-25] MEDS: TIMOLOL MALEATE 0.5% OPHTH SOLN 5 ML OU SCH (10:27)
--- NOTE | 2018-12-25 11:34 | IPNPDOC ---
Text Note Date of Service The patient was seen on 12/25/18. NOTE SUBJECTIVE: The patient is seen and examined in the room today during rehab section. Patient denies fever or chill. Denies dysuria, frequency or urgency. OBJECTIVE: VITAL SIGNS: Listed below. GENERAL: The patient is alert, awake, comfortable. HEENT: Normocephalic, atraumatic. Extraocular motors are grossly intact. Wears corrective lenses. CARDIOVASCULAR: Positive S1, S2. Regular rate. LUNGS: Clear to auscultation bilaterally. ABDOMEN: Soft, nontender. Bowel sounds present. EXTREMITIES: No significant edema appreciated bilaterally. LABORATORY DATA: Listed below. Microbiology: Urine culture is positive for ESBL. ASSESSMENT AND PLAN: #. Bilateral femur fractures. - Continue rehabilitation in ARU. Defer activity level, pain control, anticoagulation and diet as per ARU recommendations. # ESBL in urine culture - Patient is asymptomatic. No dysuria, frequency or urgency. No antibiotic treatment is needed at this moment. # Anemia. - Asymptomatic. No sign of active bleeding. Continue to monitor. #. History of idiopathic thrombocytopenic purpura (ITP) - Status post splenectomy in 2011. #. Hyperlipidemia. On statin. #. Osteoporosis. The patient is on calcium and vitamin D. #. Deep vein thrombosis (DVT) prophylaxis. The patient is currently on Xarelto. VS,Fishbone, I+O VS, Fishbone, I+O Vital Signs Date Time Temp Pulse Resp B/P (MAP) Pulse Ox O2 Delivery O2 Flow Rate FiO2 12/25/18 07:25 16 12/25/18 06:00 97.0 89 125/60 (81) 96 I&O- Last 24 Hours up to 6 AM 12/25/18 06:00 Intake Total 1080 ml Balance 1080 ml KAR KYLE DO Dec 25, 2018 11:34
[2018-12-25 14:00] VITALS: BP 120/70
[2018-12-25] MEDS: RIVAROXABAN 10 MG TAB (XARELTO) PO SCH (17:15)
[2018-12-25 20:00] VITALS: BP 125/66
[2018-12-25] MEDS: SIMVASTATIN 10 MG TAB PO SCH (20:11)
[2018-12-26 06:00] VITALS: BP 116/60
[2018-12-26] MEDS: CALCIUM/VITAMIN D 500 MG TAB PO SCH ×2 (08:50→20:35)
[2018-12-26] MEDS: GABAPENTIN 100 MG CAP PO SCH ×3 (08:51→20:35)
[2018-12-26] MEDS: ACETAMINOPHEN 500 MG TAB PO SCH ×3 (08:51→20:35)
[2018-12-26] MEDS: MAGNESIUM OXIDE 400 MG TAB (MAG-OX) PO SCH ×2 (08:51→20:35)
[2018-12-26] MEDS: PANTOPRAZOLE 40MG TAB (PROTONIX) PO SCH (08:51)
[2018-12-26] MEDS: BOUDREAUX'S BUTT PASTE 4OZ TOP SCH ×2 (08:51→20:36)
[2018-12-26] MEDS: ANALGESIC BALM CRM 120 GM TOP SCH ×3 (08:51→20:35)
[2018-12-26] MEDS: TIMOLOL MALEATE 0.5% OPHTH SOLN 5 ML OU SCH (08:52)
[2018-12-26] MEDS: DOCUSATE SODIUM 100 MG CAP PO SCH ×2 (08:52→20:33)
[2018-12-26] MEDS: CEPHALEXIN 500 MG CAP PO SCH ×2 (14:05→20:34)
[2018-12-26 15:30] VITALS: BP 121/58
--- NOTE | 2018-12-26 15:52 | IPNPDOC ---
Text Note Date of Service The patient was seen on 12/26/18. NOTE SUBJECTIVE: The patient is seen and examined in the room today. Patient notices mild discomfort of bilateral lower extremity where she had surgical repair. Denies fever or chill. Denies dysuria, frequency or urgency. OBJECTIVE: VITAL SIGNS: Listed below. GENERAL: The patient is alert, awake, comfortable. HEENT: Normocephalic, atraumatic. Extraocular motors are grossly intact. Wears corrective lenses. CARDIOVASCULAR: Positive S1, S2. Regular rate. LUNGS: Clear to auscultation bilaterally. ABDOMEN: Soft, nontender. Bowel sounds present. EXTREMITIES: No significant edema appreciated bilaterally. Bilateral lower extremity dressings are dry and clean. No active bleeding noted. No bilateral knee joint swelling. No warmth. LABORATORY DATA: Listed below. Microbiology: Urine culture is positive for ESBL. ASSESSMENT AND PLAN: #. Bilateral femur fractures. - Continue rehabilitation in ARU. Defer activity level, pain control, anticoagulation and diet as per ARU recommendations. # ESBL in urine culture - Patient is asymptomatic. No dysuria, frequency or urgency. No antibiotic treatment is needed at this moment. # Anemia. - Asymptomatic. No sign of active bleeding. Continue to monitor. #. History of idiopathic thrombocytopenic purpura (ITP) - Status post splenectomy in 2011. #. Hyperlipidemia. On statin. #. Osteoporosis. The patient is on calcium and vitamin D. #. Deep vein thrombosis (DVT) prophylaxis. The patient is currently on Xarelto. VS,Fishbone, I+O VS, Fishbone, I+O Vital Signs Date Time Temp Pulse Resp B/P (MAP) Pulse Ox O2 Delivery O2 Flow Rate FiO2 12/26/18 15:30 96.7 90 17 121/58 (18) 95 I&O- Last 24 Hours up to 6 AM 12/26/18 05:59 Intake Total 1440 ml Output Total 200 ml Balance 1240 ml KAR KYLE DO Dec 26, 2018 15:52
[2018-12-26] MEDS: RIVAROXABAN 10 MG TAB (XARELTO) PO SCH (17:09)
[2018-12-26 20:00] VITALS: BP 131/60
[2018-12-26] MEDS: traMADol 50 MG TAB PO PRN (20:34)
[2018-12-26] MEDS: BACITRACIN OINT 30GM TOP SCH (20:35)
[2018-12-26] MEDS: SIMVASTATIN 10 MG TAB PO SCH (20:35)
[2018-12-26] MEDS: BABY POWDER 120GM TOP SCH (20:36)
[2018-12-27] MEDS: traMADol 50 MG TAB PO PRN (05:53)
[2018-12-27 06:00] VITALS: BP 128/58
[2018-12-27] MEDS: BOUDREAUX'S BUTT PASTE 4OZ TOP SCH ×2 (09:00→21:00)
[2018-12-27] MEDS: GABAPENTIN 100 MG CAP PO SCH ×3 (09:18→21:23)
[2018-12-27] MEDS: MAGNESIUM OXIDE 400 MG TAB (MAG-OX) PO SCH ×2 (09:18→21:23)
[2018-12-27] MEDS: CEPHALEXIN 500 MG CAP PO SCH ×2 (09:18→21:23)
[2018-12-27] MEDS: PANTOPRAZOLE 40MG TAB (PROTONIX) PO SCH (09:18)
[2018-12-27] MEDS: DOCUSATE SODIUM 100 MG CAP PO SCH ×2 (09:18→21:00)
[2018-12-27] MEDS: TIMOLOL MALEATE 0.5% OPHTH SOLN 5 ML OU SCH (09:19)
[2018-12-27] MEDS: ACETAMINOPHEN 500 MG TAB PO SCH ×3 (09:19→21:23)
[2018-12-27] MEDS: CALCIUM/VITAMIN D 500 MG TAB PO SCH ×2 (09:19→21:22)
[2018-12-27] MEDS: BABY POWDER 120GM TOP SCH ×2 (09:19→21:00)
[2018-12-27] MEDS: BACITRACIN OINT 30GM TOP SCH ×2 (09:20→21:24)
[2018-12-27] MEDS: ANALGESIC BALM CRM 120 GM TOP SCH ×3 (09:20→21:00)
--- NOTE | 2018-12-27 13:44 | IPNPDOC ---
PM&R Progress Note DATE OF SERVICE: Dec 27, 2018 Rn Orthopedic Progress Note Subjective: Patient reports her leg cramping is better and that the new regimen for her labial ulcer is helping. REVIEW OF SYSTEMS: The following is a completed review of systems and has been reviewed. Review of systems otherwise unremarkable. PAIN: Patient self reports bilateral thigh cramping EYES: Negative for recent vision changes EARS, NOSE, & THROAT:denies rhinorrhea, throat pain or dysphagia CARDIOVASCULAR: denies chest pain or palpitations PULMONARY: Negative. Denies shortness of breath or cough GASTROINTESTINAL: Negative for constipation or diarrhea GENITOURINARY: Negative for dysuria MUSCULOSKELETAL: bilateral femur fractures NEUROLOGICAL: no tremor or seizure activity HEMATOLOGICAL: anemia SKIN: bilateral hip incisions and grace-wound blisters PSYCHIATRIC: Unremarkable All other review of systems found to be negative. PHYSICAL EXAMINATION: VITAL SIGNS: Please see below. GENERAL: Pleasant and cooperative. No acute distress. HEENT: PERRL. Extraocular movements intact. Clear conjunctiva CARDIOVASCULAR: Regular rate and rhythm. No murmurs, rubs, or gallops LUNGS: Clear to auscultation bilaterally. No wheezes. No rhonchi ABDOMEN: Soft, nontender, nondistended. Positive bowel sounds. Normal active bowel sounds NEUROLOGICAL: Alert and oriented times three. Cranial nerves II through XII grossly intact. Sensation grossly intact including bilateral first web space EXTREMITIES: 5\5 strength bilateral upper extremities. 5\5 strength bilat DF and EHL, >4/5 knee extension however limited overall due to surgery. (-) Brunilda's bilat SKIN: bilateral incisions with grace-wound blisters, no induration, sacrum without ulcer ASSESSMENT:68-year-old F with past medical history of osteoporosis who presents status post fall with bilateral femur fractures PLAN: 1. Rehab: PT/OT, assess for DME- able to ambulate well with RW, however having significant difficulty with bed mobility and standing up from a chair 2. Ortho: s.p bilateral femur ORIF on 12/16/18 WBAT, f/u with ortho in 2 weeks 3. Neuro: stable- monitor for delirium 4. Cardio; pmh HLD on Zocor, however complaining of chronic hx muscle cramping, will c/u for now- holding HCTZ for now as well as recent hx of soft BPs-medicine consulted 5. Resp: recent fever with atelectasis- encourage incentive spirometry, stable now 6. : admission UA and UCx + ESBL E. Coli however no leukocytosis and no symptoms, patient reports taking Macrobid a month ago for a UTI, will hold off on treatment, monitor PVRs 7. GI ppx: Protonix, bowel meds 8. DVT ppx: Xarelto x 6 weeks, TEDs, Dopplers negative for DVT 9. Skin: daily dressing changes, will try paper tape to secure as concerned for allergic reaction to adhesive causing blister formation at areas of contact with adhesive-improving -patient with labial ulcer, c/u peribottle NS care and skin care, started Keflex, symptoms improving 10. Pain: tramadol, Tylenol, ice, c/u gabapentin 100mg TID for muscle cramping and add menthol salicylate, will trial heating pad 11. Rheum: pmh osteoporosis, c/u Calcium and vitamin D 12. Dispo: TBD Allergies Coded Allergies: oxycodone (Unverified Adverse Reaction, Mild, N/V, 12/22/18) Vital Signs Vital Signs Date Time Temp Pulse Resp B/P (MAP) Pulse Ox O2 Delivery O2 Flow Rate FiO2 12/27/18 06:23 18 12/27/18 06:00 98.2 87 128/58 (81) 94 Microbiology Microbiology 12/22/18 Urine Culture - Final, Complete E.coli Esbl Current Medications Current Medications Current Medications Acetaminophen (Tylenol Tab) 650 mg DAILY PRN PO fever/MILD PAIN (PS 1-4); Start 12/22/18 at 14:30 Acetaminophen (Tylenol Tab) 1,000 mg TID PO Last administered on 12/27/18at 0 9:19; Start 12/22/18 at 16:00 Bacitracin (Bacitracin Oint) apply to right inner labia BID TOP Last administered on 12/27/18at 09:20; Start 12/26/18 at 21:00 Bisacodyl (Dulcolax Tab) 5 mg DAILYPRN PRN PO CONSTIPATION; Start 12/22/18 at 14:30 Calcium/Vitamin D (Oscal D) 1,000 mg BID PO Last administered on 12/27/18at 09:19; Start 12/22/18 at 21:00 Cephalexin Monohydrate (Keflex) 500 mg BID PO Last administered on 12/27/18 09:18; Start 12/26/18 at 09:00 Cyclobenzaprine HCl (Flexeril) 5 mg BID PRN PO SPASMS; Start 12/22/18 at 13:00; Stop 12/22/18 at 14:14; Status DC Docusate Sodium (Colace) 100 mg BID PO Last administered on 12/27/18 09:18; Start 12/22/18 at 21:00 Gabapentin (Neurontin) 100 mg QHS PO Last administered on 12/22/18at 20:40; Start 12/22/18 at 21:00; Stop 12/23/18 at 18:31; Status DC Gabapentin (Neurontin) 100 mg TID PO Last administered on 12/27/18 09:18; Start 12/23/18 at 21:00 Home Med (Med Rec Complete!) ASDIRECTED XX ; Start 12/22/18 at 13:45; Stop 12/22/18 at 13:45; Status DC Magnesium Hydroxide (Milk Of Magnesia) 30 ml DAILYPRN PRN PO CONSTIPATION; Start 12/22/18 at 14:30 Magnesium Oxide (Mag-Ox) 400 mg BID PO Last administered on 12/27/18 09:18; Start 12/22/18 at 21:00 Menthol/Methyl Salicylate (Bengay Cream) apply to top of thi... TID TOP Last administered on 12/27/18 09:20; Start 12/23/18 at 21:00 Ondansetron HCl (Zofran) 4 mg Q6HP PRN PO NAUSEA; Start 12/22/18 at 14:30 Oxycodone HCl (Roxicodone, Oxyir) 5 mg Q4HP PRN PO PAIN; Start 12/22/18 at 13:00; Stop 12/22/18 at 14:14; Status DC Pantoprazole Sodium (Protonix) 40 mg DAILY PO Last administered on 12/27/18 09:18; Start 12/22/18 at 09:00 Rivaroxaban (Xarelto) 10 mg DAILY@18 PO Last administered on 12/26/18at 17:09; Start 12/22/18 at 18:00 Simvastatin (Zocor) 10 mg QHS PO ; Start 12/22/18 at 21:00; Stop 12/22/18 at 21:00; Status DC Simvastatin (Zocor) 10 mg QHS PO Last administered on 12/26/18at 20:35; Start 12/22/18 at 21:00 Talc (Baby Powder) apply to inner la... BID TOP Last administered on 12/27/18at 09:19; Start 12/26/18 at 21:00 Timolol Maleate (Timoptic 0.5% Ophth Diane) 1 drop DAILY OU Last administered on 12/27/18at 09:19; Start 12/23/18 at 09:00 Timolol Maleate (Timoptic-Xe 0.5% Ophth Gfs) 1 drop DAILY OU ; Start 12/23/18 at 09:00; Stop 12/23/18 at 11:54; Status DC Tramadol HCl (Ultram) 50 mg Q4HP PRN PO MODERATE PAIN (PS 5-7) Last administered on 12/27/18 05:53; Start 12/22/18 at 14:15 Zinc Oxide (Boudreauxs Butt Paste) apply to sacrum BID TOP Last administered on 12/27/18at 09:00; Start 12/22/18 at 21:00 KO POLANCO MD Dec 27, 2018 13:44
[2018-12-27 14:00] VITALS: BP 124/60
--- NOTE | 2018-12-27 14:10 | IPNPDOC ---
Text Note Date of Service The patient was seen on 12/27/18. NOTE SUBJECTIVE: The patient is seen and examined in the room today. Patient has good oral intake. The discomfort below the bilateral knees resolved. Denies fever or chill. Denies any urinary symptom. OBJECTIVE: VITAL SIGNS: Listed below. GENERAL: The patient is alert, awake, comfortable. HEENT: Normocephalic, atraumatic. Extraocular motors are grossly intact. Wears corrective lenses. CARDIOVASCULAR: Positive S1, S2. Regular rate. LUNGS: Clear to auscultation bilaterally. ABDOMEN: Soft, nontender. Bowel sounds present. EXTREMITIES: Positive lower extremity edema bilaterally. No active bleeding noted. No bilateral knee joint swelling. No warmth. LABORATORY DATA: Listed below. Microbiology: Urine culture is positive for ESBL. ASSESSMENT AND PLAN: #. Bilateral femur fractures. - Continue rehabilitation in ARU. Defer activity level, pain control, anticoagulation and diet as per ARU recommendations. # ESBL in urine culture - Patient is still asymptomatic. No dysuria, frequency or urgency. No antibiotic treatment is needed at this moment. # Anemia. - Asymptomatic. No sign of active bleeding. Continue to monitor. #. History of idiopathic thrombocytopenic purpura (ITP) - Status post splenectomy in 2011. #. Hyperlipidemia. On statin. #. Osteoporosis. The patient is on calcium and vitamin D. #. Deep vein thrombosis (DVT) prophylaxis. The patient is currently on Xar elto. VS,Fishbone, I+O VS, Fishbone, I+O Vital Signs Date Time Temp Pulse Resp B/P (MAP) Pulse Ox O2 Delivery O2 Flow Rate FiO2 12/27/18 06:23 18 12/27/18 06:00 98.2 87 128/58 (81 94 I&O- Last 24 Hours up to 6 AM 12/27/18 06:00 Intake Total 1920 ml Output Total 0 ml Balance 1920 ml KAR KYLE DO Dec 27, 2018 14:10
[2018-12-27] MEDS: RIVAROXABAN 10 MG TAB (XARELTO) PO SCH (17:07)
[2018-12-27 20:00] VITALS: BP 113/54
[2018-12-27] MEDS: SIMVASTATIN 10 MG TAB PO SCH (21:24)
[2018-12-28 06:00] VITALS: BP 126/64
[2018-12-28 06:52] LABS: BASO # 0.1 10^3/uL (0.0-0.2); BASO % 0.8 % (0.0-1.0); EOS # 0.3 10^3/uL (0.0-0.50); EOS % 3.7 % (0.0-3.0); HEMATOCRIT 32.7 % (36.0-47.0); HEMOGLOBIN 10.5 g/dl (12.0-15.5); LYMPH # 1.8 10^3/uL (1.5-4.5); LYMPH % 19.6 % (24.0-44.0); MEAN CORPUSCULAR HEMOGLOBIN 31.8 pg (27.0-33.0); MEAN CORPUSCULAR HGB CONC 32.1 g/dl (32.0-36.5); MEAN CORPUSCULAR VOLUME 99.1 fl (80.0-96.0); MONO # 0.9 10^3/uL (0.0-0.8); NEUTROPHILS # 6.1 10^3/uL (1.8-7.7); NEUTROPHILS % 65.5 % (36.0-66.0); PLATELET COUNT, AUTOMATED 692 10^3/uL (150-450); WHITE BLOOD COUNT 9.3 10^3/uL (4.0-10.0)
[2018-12-28] MEDS: traMADol 50 MG TAB PO PRN ×2 (06:57→21:26)
[2018-12-28 07:13] LABS: BLOOD UREA NITROGEN 18 MG/DL (7-18); CALCIUM LEVEL 9.3 MG/DL (8.8-10.2); CARBON DIOXIDE LEVEL 28 MEQ/L (21-32); CHLORIDE LEVEL 107 MEQ/L (98-107); CREATININE FOR GFR 0.86 MG/DL (0.55-1.30); GLOMERULAR FILTRATION RATE > 60.0 (>45); GLUCOSE, FASTING 96 MG/DL (70-100); POTASSIUM SERUM 4.1 MEQ/L (3.5-5.1); SODIUM LEVEL 141 MEQ/L (136-145)
[2018-12-28] MEDS: ACETAMINOPHEN 500 MG TAB PO SCH ×3 (08:35→21:27)
[2018-12-28] MEDS: MAGNESIUM OXIDE 400 MG TAB (MAG-OX) PO SCH ×2 (08:35→21:27)
[2018-12-28] MEDS: CEPHALEXIN 500 MG CAP PO SCH ×2 (08:35→21:26)
[2018-12-28] MEDS: CALCIUM/VITAMIN D 500 MG TAB PO SCH ×2 (08:35→21:26)
[2018-12-28] MEDS: PANTOPRAZOLE 40MG TAB (PROTONIX) PO SCH (08:35)
[2018-12-28] MEDS: GABAPENTIN 100 MG CAP PO SCH ×3 (08:35→21:26)
[2018-12-28] MEDS: TIMOLOL MALEATE 0.5% OPHTH SOLN 5 ML OU SCH (08:36)
[2018-12-28] MEDS: DOCUSATE SODIUM 100 MG CAP PO SCH ×2 (08:36→21:00)
[2018-12-28] MEDS: BABY POWDER 120GM TOP SCH ×2 (09:00→21:00)
[2018-12-28] MEDS: BACITRACIN OINT 30GM TOP SCH ×2 (09:00→21:00)
[2018-12-28] MEDS: ANALGESIC BALM CRM 120 GM TOP SCH ×3 (09:00→21:00)
[2018-12-28] MEDS: BOUDREAUX'S BUTT PASTE 4OZ TOP SCH ×2 (09:00→21:00)
--- NOTE | 2018-12-28 09:59 | IPNPDOC ---
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 REVIEW OF SYSTEMS: The following is a completed review of systems and has been reviewed. Review of systems otherwise unremarkable. PAIN: Patient self reports bilateral thigh cramping EYES: Negative for recent vision changes EARS, NOSE, & THROAT:denies rhinorrhea, throat pain or dysphagia CARDIOVASCULAR: denies chest pain or palpitations PULMONARY: Negative. Denies shortness of breath or cough GASTROINTESTINAL: Negative for constipation or diarrhea GENITOURINARY: Negative for dysuria MUSCULOSKELETAL: bilateral femur fractures NEUROLOGICAL: no tremor or seizure activity HEMATOLOGICAL: anemia SKIN: bilateral hip incisions and grace-wound blisters, + labia minor pressure ulcer PSYCHIATRIC: Unremarkable All other review of systems found to be negative. PHYSICAL EXAMINATION: VITAL SIGNS: Please see below. GENERAL: Pleasant and cooperative. No acute distress. HEENT: PERRL. Extraocular movements intact. Clear conjunctiva CARDIOVASCULAR: Regular rate and rhythm. No murmurs, rubs, or gallops LUNGS: Clear to auscultation bilaterally. No wheezes. No rhonchi ABDOMEN: Soft, nontender, nondistended. Positive bowel sounds. Normal active bowel sounds NEUROLOGICAL: Alert and oriented times three. Cranial nerves II through XII grossly intact. Sensation grossly intact including bilateral first web space EXTREMITIES: 5\5 strength bilateral upper extremities. 5\5 strength bilat DF and EHL, >4/5 knee extension however limited overall due to surgery. (-) Brunilda's bilat SKIN: bilateral incisions with grace-wound blisters, no induration, sacrum without ulcer + diffuse stage 2 pressure labia minor ulcer with small area of slough (granulation tissue seen after debridement) ASSESSMENT:68-year-old F with past medical history of osteoporosis who presents status post fall with bilateral femur fractures PLAN: 1. Rehab: PT/OT, assess for DME- able to ambulate well with RW, however still requiring assistance with ADLs 2. Ortho: s.p bilateral femur ORIF on 12/16/18 WBAT, f/u with ortho in 2 weeks 3. Neuro: stable- monitor for delirium 4. Cardio; pmh HLD on Zocor, however complaining of chronic hx muscle cramping, will c/u for now- holding HCTZ for now as well as recent hx of soft BPs-medicine consulted 5. Resp: recent fever with atelectasis- encourage incentive spirometry, stable now 6. : admission UA and UCx + ESBL E. Coli however no leukocytosis and no symptoms, patient reports taking Macrobid a month ago for a UTI, will hold off on treatment, monitor PVRs 7. GI ppx: Protonix, bowel meds 8. DVT ppx: Xarelto x 6 weeks, TEDs, Dopplers negative for DVT 9. Skin: daily dressing changes, will try paper tape to secure as concerned for allergic reaction to adhesive causing blister formation at areas of contact with adhesive-improving -patient with labial pressure ulcer from [facility] from [facility]- s/p bedside debridement of left lower labia-minor ulcer with slough, able to remove exudate easily, no bleeding, minimal pain, and patient tolerate procedure well. Patient signed a consent prior to procedure, time out was done with nursing bedside, and entire procedure took 5 minutes. Area was cleaned with normal saline and patted dry, hydrocolloid gel applied to keep area moist, as area appeared too dry after recent normal saline rinses, will c/u to monitor and adjust regimen as needed -c/u dressing changes and Keflex 10. Pain: tramadol, Tylenol, ice, c/u gabapentin 100mg TID for muscle cramping and add menthol salicylate, will trial heating pad 11. Rheum: pmh osteoporosis, c/u Calcium and vitamin D 12. Dispo: 01/03/19 to home, progressing towards goals Allergies Coded Allergies: oxycodone (Unverified Adverse Reaction, Mild, N/V, 12/22/18) Vital Signs Vital Signs Date Time Temp Pulse Resp B/P (MAP) Pulse Ox O2 Delivery O2 Flow Rate FiO2 12/28/18 07:36 18 12/28/18 06:00 97.5 85 126/64 (84) 95 Laboratory Data CBC/BMP Laboratory Tests 12/28/18 06:34 Red Blood Count 3.30 L, Mean Corpuscular Volume 99.1 H, Mean Corpuscular Hemoglobin 31.8, Mean Corpuscular Hemoglobin Concent 32.1, Red Cell Distribution Width 16.0 H, Neutrophils (%) (Auto) 65.5, Lymphocytes (%) (Auto) 19.6 L, Monocytes (%) (Auto) 10.0 H, Eosinophils (%) (Auto) 3.7 H, Basophils (%) (Auto) 0.8, Neutrophils # (Auto) 6.1, Lymphocytes # (Auto) 1.8, Monocytes # (Auto) 0.9 H, Eosinophils # (Auto) 0.3, Basophils # (Auto) 0.1, Calcium Level 9.3 Labs 24H Laboratory Tests 2 12/28/18 06:34: Immature Granulocyte % (Auto) 0.4, White Blood Count 9.3, Red Blood Count 3.30L, Hemoglobin 10.5L, Hematocrit 32.7L, Mean Corpuscular Volume 99.1H, Mean Corpuscular Hemoglobin 31.8, Mean Corpuscular Hemoglobin Concent 32.1, Red Cell Distribution Width 16.0H, Platelet Count 692H, Neutrophils (%) (Auto) 65.5, Lymphocytes (%) (Auto) 19.6L, Monocytes (%) (Auto) 10.0H, Eosinophils (%) (Auto) 3.7H, Basophils (%) (Auto) 0.8, Neutrophils # (Auto) 6.1, Lymphocytes # (Auto) 1.8, Monocytes # (Auto) 0.9H, Eosinophils # (Auto) 0.3, Basophils # (Auto) 0.1, Nucleated Red Blood Cells % (auto) 0.0, Anion Gap 6L, Glomerular Filtration Rate > 60.0, Blood Urea Nitrogen 18, Creatinine 0.86, Sodium Level 141, Potassium Level 4.1, Chloride Level 107, Carbon Dioxide Level 28, Calcium Level 9.3 Microbiology Microbiology 12/22/18 Urine Culture - Final, Complete E.coli Esbl Current Medications Current Medications Current Medications Acetaminophen (Tylenol Tab) 650 mg DAILY PRN PO fever/MILD PAIN (PS 1-4); Start 12/22/18 at 14:30 Acetaminophen (Tylenol Tab) 1,000 mg TID PO Last administered on 12/28/18at 08:35; Start 12/22/18 at 16:00 Bacitracin (Bacitracin Oint) apply to right inner labia BID TOP Last administered on 12/27/18at 21:24; Start 12/26/18 at 21:00 Bisacodyl (Dulcolax Tab) 5 mg DAILYPRN PRN PO CONSTIPATION; Start 12/22/18 at 14:30 Calcium/Vitamin D (Oscal D) 1,000 mg BID PO Last administered on 12/28/18at 08:35; Start 12/22/18 at 21:00 Cephalexin Monohydrate (Keflex) 500 mg BID PO Last administered on 12/28/18at 08:35; Start 12/26/18 at 09:00 Cyclobenzaprine HCl (Flexeril) 5 mg BID PRN PO SPASMS; Start 12/22/18 at 13:00; Stop 12/22/18 at 14:14; Status DC Docusate Sodium (Colace) 100 mg BID PO Last administered on 12/27/18at 09:18; Start 12/22/18 at 21:00 Gabapentin (Neurontin) 100 mg QHS PO Last administered on 12/22/18at 20:40; Sta rt 12/22/18 at 21:00; Stop 12/23/18 at 18:31; Status DC Gabapentin (Neurontin) 100 mg TID PO Last administered on 12/28/18at 08:35; Start 12/23/18 at 21:00 Home Med (Med Rec Complete!) ASDIRECTED XX ; Start 12/22/18 at 13:45; Stop 12/22/18 at 13:45; Status DC Magnesium Hydroxide (Milk Of Magnesia) 30 ml DAILYPRN PRN PO CONSTIPATION; Start 12/22/18 at 14:30 Magnesium Oxide (Mag-Ox) 400 mg BID PO Last administered on 12/28/18at 08:35; Start 12/22/18 at 21:00 Menthol/Methyl Salicylate (Bengay Cream) apply to top of thi... TID TOP Last administered on 12/27/18at 16:00; Start 12/23/18 at 21:00 Ondansetron HCl (Zofran) 4 mg Q6HP PRN PO NAUSEA; Start 12/22/18 at 14:30 Oxycodone HCl (Roxicodone, Oxyir) 5 mg Q4HP PRN PO PAIN; Start 12/22/18 at 13:00; Stop 12/22/18 at 14:14; Status DC Pantoprazole Sodium (Protonix) 40 mg DAILY PO Last administered on 12/28/18 08:35; Start 12/22/18 at 09:00 Rivaroxaban (Xarelto) 10 mg DAILY@18 PO Last administered on 12/27/18 17:07; Start 12/22/18 at 18:00 Simvastatin (Zocor) 10 mg QHS PO ; Start 12/22/18 at 21:00; Stop 12/22/18 at 21:00; Status DC Simvastatin (Zocor) 10 mg QHS PO Last administered on 12/27/18 21:24; Start 12/22/18 at 21:00 Talc (Baby Powder) apply to inner la... BID TOP Last administered on 12/27/18 21:00; Start 12/26/18 at 21:00 Timolol Maleate (Timoptic 0.5% Ophth Diane) 1 drop DAILY OU Last administered on 12/28/18 08:36; Start 12/23/18 at 09:00 Timolol Maleate (Timoptic-Xe 0.5% Ophth Gfs) 1 drop DAILY OU ; Start 12/23/18 at 09:00; Stop 12/23/18 at 11:54; Status DC Tramadol HCl (Ultram) 50 mg Q4HP PRN PO MODERATE PAIN (PS 5-7) Last administered on 12/28/18 06:57; Start 12/22/18 at 14:15 Zinc Oxide (Boudreauxs Butt Paste) apply to sacrum BID TOP Last administered on 12/27/18 09:00; Start 12/22/18 at 21:00 KO POLANCO MD Dec 28, 2018 09:59
[2018-12-28 14:00] VITALS: BP 125/58
--- NOTE | 2018-12-28 15:29 | IPNPDOC ---
Date Seen The patient was seen on 12/28/18. Progress Note SUBJECTIVE: The patient is seen and examined in the room today. she has no complaints. She was trying try therapy to help with her vaginal discomfort. She currently has a gel-like ointment that can helping her a lot better versus dry therapy. She is working well with PT. Denies fever, chills night sweats nausea vomiting diarrhea, dysuria or urinary frequency or urinary fullness. Admits to g eneralized soreness bilaterally at the hips which is currently improving with continued PT. OBJECTIVE: VITAL SIGNS: Listed below. GENERAL: The patient is alert, awake, comfortable. HEENT: Normocephalic, atraumatic. Extraocular motors are grossly intact. Wears corrective lenses. CARDIOVASCULAR: Positive S1, S2. Regular rate. LUNGS: Clear to auscultation bilaterally. ABDOMEN: Soft, nontender. Bowel sounds present. GENITOURINARY: Slightly swollen labia majora non-erythematous no discharge no skin breakdown noted clear gel-like fluid on top EXTREMITIES: Positive lower extremity edema bilaterally. No active bleeding noted. No bilateral knee joint swelling. No warmth. LABORATORY DATA: Listed below. Microbiology: Urine culture is positive for ESBL. ASSESSMENT AND PLAN: Bilateral femur fractures. - Continue rehabilitation in ARU. Defer activity level, pain control, anticoag ulation and diet as per ARU recommendations. ESBL in urine culture - Patient is still asymptomatic. No dysuria, frequency or urgency. Antibiotics not indicated. Anemia. - Asymptomatic. No sign of active bleeding. Continue to monitor. History of idiopathic thrombocytopenic purpura (ITP) - Status post splenectomy in 2011. Swollen labia majora -No open wounds noted. Currently using grace-bottle Bacitracin ONT which is providing relief. -Started on Keflex 500 mg by mouth twice a day on 12/26/18. -We'll continue to monitor Hyperlipidemia. On statin. Osteoporosis. The patient is on calcium and vitamin D. Deep vein thrombosis (DVT) prophylaxis. The patient is currently on Xarelto. VS, I&O, 24H, Fishbone Vital Signs/I&O Vital Signs Date Time Temp Pulse Resp B/P (MAP) Pulse Ox O2 Delivery O2 Flow Rate FiO2 12/28/18 14:00 97.5 90 18 125/58 (80) 96 I&O- Last 24 Hours up to 6 AM 12/28/18 06:00 Intake Total 1720 ml Balance 1720 ml Laboratory Data 24H LABS Laboratory Tests 2 12/28/18 06:34: Immature Granulocyte % (Auto) 0.4, White Blood Count 9.3, Red Blood Count 3.30L, Hemoglobin 10.5L, Hematocrit 32.7L, Mean Corpuscular Volume 99.1H, Mean Corpuscular Hemoglobin 31.8, Mean Corpuscular Hemoglobin Concent 32.1, Red Cell Distribution Width 16.0H, Platelet Count 692H, Neutrophils (%) (Auto) 65.5, Lymphocytes (%) (Auto) 19.6L, Monocytes (%) (Auto) 10.0H, Eosinophils (%) (Auto) 3.7H, Basophils (%) (Auto) 0.8, Neutrophils # (Auto) 6.1, Lymphocytes # (Auto) 1.8, Monocytes # (Auto) 0.9H, Eosinophils # (Auto) 0.3, Basophils # (Auto) 0.1, Nucleated Red Blood Cells % (auto) 0.0, Anion Gap 6L, Glomerular Filtration Rate > 60.0, Blood Urea Nitrogen 18, Creatinine 0.86, Sodium Level 141, Potassium Level 4.1, Chloride Level 107, Carbon Dioxide Level 28, Calcium Level 9.3 CBC/BMP Laboratory Tests 12/28/18 06:34 Red Blood Count 3.30 L, Mean Corpuscular Volume 99.1 H, Mean Corpuscular Hemoglobin 31.8, Mean Corpuscular Hemoglobin Concent 32.1, Red Cell Distribution Width 16.0 H, Neutrophils (%) (Auto) 65.5, Lymphocytes (%) (Auto) 19.6 L, Monocytes (%) (Auto) 10.0 H, Eosinophils (%) (Auto) 3.7 H, Basophils (%) (Auto) 0.8, Neutrophils # (Auto) 6.1, Lymphocytes # (Auto) 1.8, Monocytes # (Auto) 0.9 H, Eosinophils # (Auto) 0.3, Basophils # (Auto) 0.1, Calcium Level 9.3 Microbiology Microbiology 12/22/18 Urine Culture - Final, Complete E.coli Esbl GME ATTESTATION GME ATTESTATION My faculty preceptor for this patient encounter was physically present during the encounter and was fully available. All aspects of the patient interview, examination, medical decision making process, and medical care plan development were reviewed and approved by the faculty preceptor. The faculty preceptor is aware and concurs with the plan as stated in the body of this note and will attest to such by his/her cosignature. MYNOR PENALOZA DO Dec 28, 2018 15:29
[2018-12-28] MEDS: RIVAROXABAN 10 MG TAB (XARELTO) PO SCH (17:21)
[2018-12-28 20:00] VITALS: BP 110/53
[2018-12-28] MEDS: SIMVASTATIN 10 MG TAB PO SCH (21:26)
[2018-12-29 06:00] VITALS: BP 118/58
[2018-12-29] MEDS: traMADol 50 MG TAB PO PRN (07:35)
[2018-12-29] MEDS: CEPHALEXIN 500 MG CAP PO SCH ×2 (08:42→22:11)
[2018-12-29] MEDS: GABAPENTIN 100 MG CAP PO SCH ×3 (08:42→22:11)
[2018-12-29] MEDS: ACETAMINOPHEN 500 MG TAB PO SCH ×3 (08:43→22:11)
[2018-12-29] MEDS: CALCIUM/VITAMIN D 500 MG TAB PO SCH ×2 (08:43→22:10)
[2018-12-29] MEDS: BACITRACIN OINT 30GM TOP SCH (08:44)
[2018-12-29] MEDS: PANTOPRAZOLE 40MG TAB (PROTONIX) PO SCH (08:44)
[2018-12-29] MEDS: ANALGESIC BALM CRM 120 GM TOP SCH ×3 (08:44→22:12)
[2018-12-29] MEDS: BABY POWDER 120GM TOP SCH (08:44)
[2018-12-29] MEDS: MAGNESIUM OXIDE 400 MG TAB (MAG-OX) PO SCH ×2 (08:44→22:12)
[2018-12-29] MEDS: TIMOLOL MALEATE 0.5% OPHTH SOLN 5 ML OU SCH (08:44)
[2018-12-29] MEDS: BOUDREAUX'S BUTT PASTE 4OZ TOP SCH ×2 (08:45→21:00)
[2018-12-29] MEDS: DOCUSATE SODIUM 100 MG CAP PO SCH ×2 (09:00→21:00)
--- NOTE | 2018-12-29 12:20 | IPNPDOC ---
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 REVIEW OF SYSTEMS: The following is a completed review of systems and has been reviewed. Review of systems otherwise unremarkable. PAIN: Patient self reports bilateral thigh cramping-improving EYES: Negative for recent vision changes EARS, NOSE, & THROAT:denies rhinorrhea, throat pain or dysphagia CARDIOVASCULAR: denies chest pain or palpitations PULMONARY: Negative. Denies shortness of breath or cough GASTROINTESTINAL: Negative for constipation or diarrhea GENITOURINARY: Negative for dysuria MUSCULOSKELETAL: bilateral femur fractures NEUROLOGICAL: no tremor or seizure activity HEMATOLOGICAL: anemia SKIN: bilateral hip incisions and grace-wound blisters, + labia minor pressure ulcer PSYCHIATRIC: Unremarkable All other review of systems found to be negative. PHYSICAL EXAMINATION: VITAL SIGNS: Please see below. GENERAL: Pleasant and cooperative. No acute distress. HEENT: PERRL. Extraocular movements intact. Clear conjunctiva CARDIOVASCULAR: Regular rate and rhythm. No murmurs, rubs, or gallops LUNGS: Clear to auscultation bilaterally. No wheezes. No rhonchi ABDOMEN: Soft, nontender, nondistended. Positive bowel sounds. Normal active bowel sounds NEUROLOGICAL: Alert and oriented times three. Cranial nerves II through XII grossly intact. Sensation grossly intact including bilateral first web space EXTREMITIES: 5\5 strength bilateral upper extremities. 5\5 strength bilat DF and EHL, >4/5 knee extension however limited overall due to surgery. (-) Brunilda's bilat, however +TTP right popliteus muscle origin SKIN: bilateral incisions with grace-wound blisters, no induration, sacrum without ulcer + diffuse stage 2 pressure labia minor ulcer with small area of slough (granulation tissue seen after debridement) ASSESSMENT:68-year-old F with past medical history of osteoporosis who presents status post fall with bilateral femur fractures PLAN: 1. Rehab: PT/OT, assess for DME- able to ambulate well with RW, however still requiring assistance with ADLs 2. Ortho: s.p bilateral femur ORIF on 12/16/18 WBAT, f/u with ortho in 2 weeks 3. Neuro: stable- monitor for delirium 4. Cardio; pmh HLD on Zocor, however complaining of chronic hx muscle cramping, will c/u for now- holding HCTZ for now as well as recent hx of soft BPs-medicine consulted 5. Resp: recent fever with atelectasis- encourage incentive spirometry, stable now 6. : admission UA and UCx + ESBL E. Coli however no leukocytosis and no symptoms, patient reports taking Macrobid a month ago for a UTI, will hold off on treatment, monitor PVRs 7. GI ppx: Protonix, bowel meds 8. DVT ppx: Xarelto x 6 weeks, TEDs, Dopplers negative for DVT, however will obtain repeat RLE as patient has right upper calf cramping 9. Skin: daily dressing changes with ABD pads and netting -patient with labial pressure ulcer from [facility] from [facility]- s/p bedside debridement 12/28/18 of left lower labia-minor ulcer with slough, able to remove exudate easily, no bleeding, minimal pain, and patient tolerate procedure well. Patient signed a consent prior to procedure, time out was done with nursing bedside, and entire procedure took 5 minutes. Area was cleaned with normal sa line and patted dry, hydrocolloid gel applied to keep area moist, as area appeared too dry after recent normal saline rinses, will c/u to monitor and adjust regimen as needed- pain improved today and patient able to self-apply gel prn -c/u dressing changes and Keflex 10. Pain: tramadol, Tylenol, ice, c/u gabapentin 100mg TID for muscle cramping and add menthol salicylate, will trial heating pad 11. Rheum: pmh osteoporosis, c/u Calcium and vitamin D 12. Dispo: 01/03/19 to home, progressing towards goals 13. Insomnia: patient reports she did not sleep well alst night, will start trazodone Allergies Coded Allergies: oxycodone (Unverified Adverse Reaction, Mild, N/V, 12/22/18) Vital Signs Vital Signs Date Time Temp Pulse Resp B/P (MAP) Pulse Ox O2 Delivery O2 Flow Rate FiO2 12/29/18 08:05 18 12/29/18 06:00 97.6 81 118/58 (78) 94 Microbiology Microbiology 12/22/18 Urine Culture - Final, Complete E.coli Esbl Current Medications Current Medications Current Medications Acetaminophen (Tylenol Tab) 650 mg DAILY PRN PO fever/MILD PAIN (PS 1-4); Start 12/22/18 at 14:30 Acetaminophen (Tylenol Tab) 1,000 mg TID PO Last administered on 12/29/18at 08:43; Start 12/22/18 at 16:00 Bacitracin (Bacitracin Oint) apply to right inner labia BID TOP Last administered on 12/27/18at 21:24; Start 12/26/18 at 21:00; Stop 12/29/18 at 10:09; Status DC Bisacodyl (Dulcolax Tab) 5 mg DAILYPRN PRN PO CONSTIPATION; Start 12/22/18 at 14:30 Calcium/Vitamin D (Oscal D) 1,000 mg BID PO Last administered on 12/29/18at 08:43; Start 12/22/18 at 21:00 Cephalexin Monohydrate (Keflex) 500 mg BID PO Last administered on 12/29/18at 08:42; Start 12/26/18 at 09:00 Cyclobenzaprine HCl (Flexeril) 5 mg BID PRN PO SPASMS; Start 12/22/18 at 13:00; Stop 12/22/18 at 14:14; Status DC Docusate Sodium (Colace) 100 mg BID PO Last administered on 12/29/18at 09:00; Start 12/22/18 at 21:00 Gabapentin (Neurontin) 100 mg QHS PO Last administered on 12/22/18at 20:40; Start 12/22/18 at 21:00; Stop 12/23/18 at 18:31; Status DC Gabapentin (Neurontin) 100 mg TID PO Last administered on 12/29/18at 08:42; Start 12/23/18 at 21:00 Home Med (Med Rec Complete!) ASDIRECTED XX ; Start 12/22/18 at 13:45; Stop 12/22/18 at 13:45; Status DC Magnesium Hydroxide (Milk Of Magnesia) 30 ml DAILYPRN PRN PO CONSTIPATION; Start 12/22/18 at 14:30 Magnesium Oxide (Mag-Ox) 400 mg BID PO Last administered on 12/29/18at 08:44; Start 12/22/18 at 21:00 Menthol/Methyl Salicylate (Bengay Cream) apply to top of thi... TID TOP Last administered on 12/27/18 16:00; Start 12/23/18 at 21:00 Ondansetron HCl (Zofran) 4 mg Q6HP PRN PO NAUSEA; Start 12/22/18 at 14:30 Oxycodone HCl (Roxicodone, Oxyir) 5 mg Q4HP PRN PO PAIN; Start 12/22/18 at 13:00; Stop 12/22/18 at 14:14; Status DC Pantoprazole Sodium (Protonix) 40 mg DAILY PO Last administered on 12/29/18 08:44; Start 12/22/18 at 09:00 Rivaroxaban (Xarelto) 10 mg DAILY@18 PO Last administered on 12/28/18 17:21; Start 12/22/18 at 18:00 Simvastatin (Zocor) 10 mg QHS PO ; Start 12/22/18 at 21:00; Stop 12/22/18 at 21:00; Status DC Simvastatin (Zocor) 10 mg QHS PO Last administered on 12/28/18at 21:26; Start 12/22/18 at 21:00 Talc (Baby Powder) apply to inner la... BID TOP Last administered on 12/27/18 21:00; Start 12/26/18 at 21:00; Stop 12/29/18 at 10:09; Status DC Timolol Maleate (Timoptic 0.5% Ophth Diane) 1 drop DAILY OU Last administered on 12/29/18at 08:44; Start 12/23/18 at 09:00 Timolol Maleate (Timoptic-Xe 0.5% Ophth Gfs) 1 drop DAILY OU ; Start 12/23/18 at 09:00; Stop 12/23/18 at 11:54; Status DC Tramadol HCl (Ultram) 50 mg Q4HP PRN PO MODERATE PAIN (PS 5-7) Last administered on 12/29/18at 07:35; Start 12/22/18 at 14:15 Trazodone HCl (Desyrel) 25 mg QHS PO ; Start 12/29/18 at 21:00 Zinc Oxide (Boudreauxs Butt Paste) apply to sacrum BID TOP Last administered on 12/29/18at 08:45; Start 12/22/18 at 21:00 KO POLANCO MD Dec 29, 2018 12:20
--- NOTE | 2018-12-29 12:49 | IPNPDOC ---
Date Seen The patient was seen on 12/29/18. Progress Note SUBJECTIVE: The patient is seen and examined in the room today. Romelia is to work with PT and OT as scheduled. She is a little sore in her hips Her moist therapy on her vaginal area has helped. She denies any new complaints at this time. Earlier this morning her neighbors came to visit. She has no complaints at this time. OBJECTIVE: VITAL SIGNS: Listed below. GENERAL: The patient is alert, awake, comfortable. HEENT: Normocephalic, atraumatic. Extraocular motors are grossly intact. Wears corrective lenses. CARDIOVASCULAR: Positive S1, S2. Regular rate. LUNGS: Clear to auscultation bilaterally. ABDOMEN: Soft, nontender. Bowel sounds present. GENITOURINARY: Slightly swollen labia majora non-erythematous no discharge no skin breakdown noted clear gel-like fluid on top EXTREMITIES: Positive lower extremity edema bilaterally. No active bleeding noted. No bilateral knee joint swelling. No warmth. LABORATORY DATA: Listed below. Microbiology: Urine culture is positive for ESBL. ASSESSMENT AND PLAN: Bilateral femur fractures. - Continue rehabilitation in ARU. Defer activity level, pain control, anticoagulation and diet as per ARU recommendations. ESBL in urine culture - Patient is still asymptomatic. No dysuria, frequency or urgency. Antibiotics not indicated. Anemia. - Asymptomatic. No sign of active bleeding. Continue to monitor. History of idiopathic thrombocytopenic purpura (ITP) - Status post splenectomy in 2011. labial pressure ulcer from [facility] in [facility] -No open wounds noted. Currently using grace-bottle, hydrocolloid gel which is providing relief. -Started on Keflex 500 mg by mouth twice a day on 12/26/18 if symptoms resolved tomorrow consider discontinuing. -Bedside debridement performed on 12/28/2018 Dr. Israel -We'll continue to monitor Hyperlipidemia. On statin. Osteoporosis. The patient is on calcium and vitamin D. Deep vein thrombosis (DVT) prophylaxis. The patient is currently on Xarelto. VS, I&O, 24H, Fishbone Vital Signs/I&O Vital Signs Date Time Temp Pulse Resp B/P (MAP) Pulse Ox O2 Delivery O2 Flow Rate FiO2 12/29/18 08:05 18 12/29/18 06:00 97.6 81 118/58 (78 94 I&O- Last 24 Hours up to 6 AM 12/29/18 06:00 Intake Total 1860 ml Output Total 700 ml Balance 1160 ml Laboratory Data Microbiology Microbiology 12/22/18 Urine Culture - Final, Complete E.coli Esbl GME ATTESTATION GME ATTESTATION My faculty preceptor for this patient encounter was physically present during the encounter and was fully available. All aspects of the patient interview, examination, medical decision making process, and medical care plan development were reviewed and approved by the faculty preceptor. The faculty preceptor is aware and concurs with the plan as stated in the body of this note and will attest to such by his/her cosignature. MYNOR PENALOZA DO Dec 29, 2018 12:49
--- NOTE | 2018-12-29 13:50 | REP ---
REASON: Pain and swelling particularly of the calf. History of previous femoral fracture. TECHNIQUE: Multiple ultrasonographic images of the deep venous structures of the thigh were obtained from the common femoral vein to the popliteal vein along with Doppler interrogation and color flow Doppler images. FINDINGS: There is no abnormal echogenic material seen within any of the visualized deep venous structures that would suggest acute thrombosis. Coaptation is unremarkable throughout. Doppler interrogation shows an expected response to respiratory variability and augmentation. The color flow images show what appears to be a normal vascular pattern throughout. IMPRESSION: There is no ultrasonographic evidence of deep venous thrombosis involving any of the visualized deep venous structures of the right thigh, as described above. Electronically Signed by Ozzie Tan DO 12/29/2018 05:01 P
[2018-12-29 14:00] VITALS: BP 117/55
[2018-12-29] MEDS: RIVAROXABAN 10 MG TAB (XARELTO) PO SCH (17:08)
[2018-12-29 20:00] VITALS: BP 119/58
[2018-12-29] MEDS: SIMVASTATIN 10 MG TAB PO SCH (22:11)
[2018-12-29] MEDS: traZODone 25MG PER 1/2 TABLET PO SCH (22:12)
[2018-12-30 06:00] VITALS: BP 129/64
[2018-12-30 07:10] LABS: BASO # 0.1 10^3/uL (0.0-0.2); BASO % 0.9 % (0.0-1.0); EOS # 0.4 10^3/uL (0.0-0.50); HEMATOCRIT 33.2 % (36.0-47.0); HEMOGLOBIN 10.5 g/dl (12.0-15.5); LYMPH % 25.2 % (24.0-44.0); MEAN CORPUSCULAR HEMOGLOBIN 31.6 pg (27.0-33.0); MEAN CORPUSCULAR HGB CONC 31.6 g/dl (32.0-36.5); MONO # 0.8 10^3/uL (0.0-0.8); MONO % 10.6 % (0.0-5.0); NEUTROPHILS # 4.5 10^3/uL (1.8-7.7); NEUTROPHILS % 57.8 % (36.0-66.0); PLATELET COUNT, AUTOMATED 754 10^3/uL (150-450); RED BLOOD COUNT 3.32 10^6/uL (4.00-5.40); WHITE BLOOD COUNT 7.8 10^3/uL (4.0-10.0)
[2018-12-30 07:30] LABS: BLOOD UREA NITROGEN 19 MG/DL (7-18); CALCIUM LEVEL 9.3 MG/DL (8.8-10.2); CARBON DIOXIDE LEVEL 28 MEQ/L (21-32); CHLORIDE LEVEL 108 MEQ/L (98-107); CREATININE FOR GFR 0.78 MG/DL (0.55-1.30); GLOMERULAR FILTRATION RATE > 60.0 (>45); GLUCOSE, FASTING 91 MG/DL (70-100); POTASSIUM SERUM 4.9 MEQ/L (3.5-5.1); SODIUM LEVEL 141 MEQ/L (136-145)
[2018-12-30] MEDS: DOCUSATE SODIUM 100 MG CAP PO SCH ×2 (08:04→21:00)
[2018-12-30] MEDS: GABAPENTIN 100 MG CAP PO SCH ×3 (08:05→20:51)
[2018-12-30] MEDS: CALCIUM/VITAMIN D 500 MG TAB PO SCH ×2 (08:05→20:51)
[2018-12-30] MEDS: CEPHALEXIN 500 MG CAP PO SCH ×2 (08:06→20:51)
[2018-12-30] MEDS: ACETAMINOPHEN 500 MG TAB PO SCH ×3 (08:06→20:52)
[2018-12-30] MEDS: MAGNESIUM OXIDE 400 MG TAB (MAG-OX) PO SCH ×2 (08:06→20:51)
[2018-12-30] MEDS: PANTOPRAZOLE 40MG TAB (PROTONIX) PO SCH (08:07)
[2018-12-30] MEDS: ANALGESIC BALM CRM 120 GM TOP SCH ×2 (08:07→16:00)
[2018-12-30] MEDS: BOUDREAUX'S BUTT PASTE 4OZ TOP SCH (08:08)
[2018-12-30] MEDS: TIMOLOL MALEATE 0.5% OPHTH SOLN 5 ML OU SCH (08:08)
--- NOTE | 2018-12-30 10:52 | IPNPDOC ---
PM&R Progress Note DATE OF SERVICE: Dec 30, 2018 Last Inserter Progress Note Subjective: Patient reports her wound feels much better and that she feels more agile. REVIEW OF SYSTEMS: The following is a completed review of systems and has been reviewed. Review of systems otherwise unremarkable. PAIN: Patient self reports bilateral thigh cramping-improving EYES: Negative for recent vision changes EARS, NOSE, & THROAT:denies rhinorrhea, throat pain or dysphagia CARDIOVASCULAR: denies chest pain or palpitations PULMONARY: Negative. Denies shortness of breath or cough GASTROINTESTINAL: Negative for constipation or diarrhea GENITOURINARY: Negative for dysuria MUSCULOSKELETAL: bilateral femur fractures NEUROLOGICAL: no tremor or seizure activity HEMATOLOGICAL: anemia SKIN: bilateral hip incisions and grace-wound blisters, + labia minor pressure ulcer PSYCHIATRIC: Unremarkable All other review of systems found to be negative. PHYSICAL EXAMINATION: VITAL SIGNS: Please see below. GENERAL: Pleasant and cooperative. No acute distress. HEENT: PERRL. Extraocular movements intact. Clear conjunctiva CARDIOVASCULAR: Regular rate and rhythm. No murmurs, rubs, or gallops LUNGS: Clear to auscultation bilaterally. No wheezes. No rhonchi ABDOMEN: Soft, nontender, nondistended. Positive bowel sounds. Normal active bowel sounds NEUROLOGICAL: Alert and oriented times three. Cranial nerves II through XII grossly intact. Sensation grossly intact including bilateral first web space EXTREMITIES: 5\5 strength bilateral upper extremities. 5\5 strength bilat DF and EHL, >4/5 knee extension however limited overall due to surgery. (-) Brunilda's bilat, however +TTP right popliteus muscle origin SKIN: bilateral incisions with grace-wound blisters, no induration, sacrum without ulcer + diffuse stage 2 pressure labia minor ulcer with granulation tissue ASSESSMENT:68-year-old F with past medical history of osteoporosis who presents status post fall with bilateral femur fractures PLAN: 1. Rehab: PT/OT, assess for DME- able to ambulate well with RW and Mod-I with ADLs, will order room privileges 2. Ortho: s.p bilateral femur ORIF on 12/16/18 WBAT, f/u with ortho in 2 weeks 3. Neuro: stable- monitor for delirium-stable 4. Cardio; pmh HLD on Zocor, however complaining of chronic hx muscle cramping, will c/u for now- holding HCTZ for now as well as recent hx of soft BPs-medicine consulted 5. Resp: recent fever with atelectasis- encourage incentive spirometry, stable now 6. : admission UA and UCx + ESBL E. Coli however no leukocytosis and no symptoms, patient reports taking Macrobid a month ago for a UTI, will hold off on treatment, monitor PVRs 7. GI ppx: Protonix, bowel meds 8. DVT ppx: Xarelto x 6 weeks, TEDs, Dopplers negative for DVT, however will obtain repeat RLE as patient has right upper calf cramping- Doppler negative for DVT 9. Skin: daily dressing changes with ABD pads and netting -patient with labial pressure ulcer from [facility] from [facility]- s/p bedside debridement 12/28/18- c/u hydrocolloid gel treatment, pain still better, granulation tissue forming, patient able to self-apply gel prn -c/u dressing changes and Keflex -will refer to Dr. Hernandez for wound care as o/p 10. Pain: tramadol, Tylenol, ice, c/u gabapentin 100mg TID for muscle cramping and add menthol salicylate, heating pad 11. Rheum: pmh osteoporosis, c/u Calcium and vitamin D 12. Dispo: 01/03/19 to home, progressing towards goals 13. Insomnia: c/u trazodone Allergies Coded Allergies: oxycodone (Unverified Adverse Reaction, Mild, N/V, 12/22/18) Vital Signs Vital Signs Date Time Temp Pulse Resp B/P (MAP) Pulse Ox O2 Delivery O2 Flow Rate FiO2 12/30/18 06:00 97.9 95 18 129/64 (85) 96 Laboratory Data CBC/BMP Laboratory Tests 12/30/18 06:48 Red Blood Count 3.32 L, Mean Corpuscular Volume 100.0 H, Mean Corpuscular Hemoglobin 31.6, Mean Corpuscular Hemoglobin Concent 31.6 L, Red Cell Distribution Width 15.9 H, Neutrophils (%) (Auto) 57.8, Lymphocytes (%) (Auto) 25.2, Monocytes (%) (Auto) 10.6 H, Eosinophils (%) (Auto) 5.0 H, Basophils (%) (Auto) 0.9, Neutrophils # (Auto) 4.5, Lymphocytes # (Auto) 2.0, Monocytes # (Auto) 0.8, Eosinophils # (Auto) 0.4, Basophils # (Auto) 0.1, Calcium Level 9.3 Labs 24H Laboratory Tests 2 12/30/18 06:48: Immature Granulocyte % (Auto) 0.5, White Blood Count 7.8, Red Blood Count 3.32L, Hemoglobin 10.5L, Hematocrit 33.2L, Mean Corpuscular Volume 100.0H, Mean Corpuscular Hemoglobin 31.6, Mean Corpuscular Hemoglobin Concent 31.6L, Red Cell Distribution Width 15.9H, Platelet Count 754H, Neutrophils (%) (Auto) 57.8, Lymphocytes (%) (Auto) 25.2, Monocytes (%) (Auto) 10.6H, Eosinophils (%) (Auto) 5.0H, Basophils (%) (Auto) 0.9, Neutrophils # (Auto) 4.5, Lymphocytes # (Auto) 2.0, Monocytes # (Auto) 0.8, Eosinophils # (Auto) 0.4, Basophils # (Auto) 0.1, Nucleated Red Blood Cells % (auto) 0.0, Anion Gap 5L, Glomerular Filtration Rate > 60.0, Blood Urea Nitrogen 19H, Creatinine 0.78, Sodium Level 141, Potassium Level 4.9, Chloride Level 108H, Carbon Dioxide Level 28, Calcium Level 9.3 Microbiology Microbiology 12/22/18 Urine Culture - Final, Complete E.coli Esbl Current Medications Current Medications Current Medications Acetaminophen (Tylenol Tab) 650 mg DAILY PRN PO fever/MILD PAIN (PS 1-4); Start 12/22/18 at 14:30 Acetaminophen (Tylenol Tab) 1,000 mg TID PO Last administered on 12/30/18at 08:06; Start 12/22/18 at 16:00 Bacitracin (Bacitracin Oint) apply to right inner labia BID TOP Last admini stered on 12/27/18at 21:24; Start 12/26/18 at 21:00; Stop 12/29/18 at 10:09; Status DC Bisacodyl (Dulcolax Tab) 5 mg DAILYPRN PRN PO CONSTIPATION; Start 12/22/18 at 14:30 Calcium/Vitamin D (Oscal D) 1,000 mg BID PO Last administered on 12/30/18 08:05; Start 12/22/18 at 21:00 Cephalexin Monohydrate (Keflex) 500 mg BID PO Last administered on 12/30/18at 08:06; Start 12/26/18 at 09:00 Cyclobenzaprine HCl (Flexeril) 5 mg BID PRN PO SPASMS; Start 12/22/18 at 13:00; Stop 12/22/18 at 14:14; Status DC Docusate Sodium (Colace) 100 mg BID PO Last administered on 12/29/18at 09:00; Start 12/22/18 at 21:00 Gabapentin (Neurontin) 100 mg QHS PO Last administered on 12/22/18at 20:40; Start 12/22/18 at 21:00; Stop 12/23/18 at 18:31; Status DC Gabapentin (Neurontin) 100 mg TID PO Last administered on 12/30/18at 08:05; Start 12/23/18 at 21:00 Home Med (Med Rec Complete!) ASDIRECTED XX ; Start 12/22/18 at 13:45; Stop 12/22/18 at 13:45; Status DC Magnesium Hydroxide (Milk Of Magnesia) 30 ml DAILYPRN PRN PO CONSTIPATION; Start 12/22/18 at 14:30 Magnesium Oxide (Mag-Ox) 400 mg BID PO Last administered on 12/30/18at 08:06; Start 12/22/18 at 21:00 Menthol/Methyl Salicylate (Bengay Cream) apply to top of thi... TID TOP Last administered on 12/29/18at 22:12; Start 12/23/18 at 21:00 Ondansetron HCl (Zofran) 4 mg Q6HP PRN PO NAUSEA; Start 12/22/18 at 14:30 Oxycodone HCl (Roxicodone, Oxyir) 5 mg Q4HP PRN PO PAIN; Start 12/22/18 at 13:00; Stop 12/22/18 at 14:14; Status DC Pantoprazole Sodium (Protonix) 40 mg DAILY PO Last administered on 12/30/18at 08:07; Start 12/22/18 at 09:00 Rivaroxaban (Xarelto) 10 mg DAILY@18 PO Last administered on 12/29/18at 17:08; Start 12/22/18 at 18:00 Simvastatin (Zocor) 10 mg QHS PO ; Start 12/22/18 at 21:00; Stop 12/22/18 at 21:00; Status DC Simvastatin (Zocor) 10 mg QHS PO Last administered on 12/29/18at 22:11; Start 12/22/18 at 21:00 Talc (Baby Powder) apply to inner la... BID TOP Last administered on 12/27/18at 21:00; Start 12/26/18 at 21:00; Stop 12/29/18 at 10:09; Status DC Timolol Maleate (Timoptic 0.5% Ophth Diane) 1 drop DAILY OU Last administered on 12/30/18 08:08; Start 12/23/18 at 09:00 Timolol Maleate (Timoptic-Xe 0.5% Ophth Gfs) 1 drop DAILY OU ; Start 12/23/18 at 09:00; Stop 12/23/18 at 11:54; Status DC Tramadol HCl (Ultram) 50 mg Q4HP PRN PO MODERATE PAIN (PS 5-7) Last administered on 12/29/18at 07:35; Start 12/22/18 at 14:15 Trazodone HCl (Desyrel) 25 mg QHS PO Last administered on 12/29/18at 22:12; Start 12/29/18 at 21:00 Zinc Oxide (Boudreauxs Butt Paste) apply to sacrum BID TOP Last administered on 12/29/18at 21:00; Start 12/22/18 at 21:00 KO POLANCO MD Dec 30, 2018 10:52
--- NOTE | 2018-12-30 11:50 | IPNPDOC ---
Date Seen The patient was seen on 12/30/18. Progress Note SUBJECTIVE: The patient is seen and examined in the room today. she is working with PT and OT as scheduled. Her vaginal burning sensation has improved with the current weeks therapy. She is able to sit on a chair without rolling discomfort. Her daughter and her family came to visit today. She has no complaints. Denies chest pain, shortness of breath, diarrhea, nausea, vomiting. She has no complaints at this time. OBJECTIVE: VITAL SIGNS: Listed below. GENERAL: The patient is alert, awake, comfortable. HEENT: Normocephalic, atraumatic. Extraocular motors are grossly intact. Wears corrective lenses. CARDIOVASCULAR: Positive S1, S2. Regular rate. LUNGS: Clear to auscultation bilaterally. ABDOMEN: Soft, nontender. Bowel sounds present. GENITOURINARY: Slightly swollen labia majora erythematous slightly irritated status post debridement no ulcers or blisters noted. Gel-like fluid topical applied. EXTREMITIES: Positive lower extremity edema bilaterally. No active bleeding n oted. No bilateral knee joint swelling. No warmth. LABORATORY DATA: Listed below. Microbiology: Urine culture is positive for ESBL. ASSESSMENT AND PLAN: Bilateral femur fractures. - Continue rehabilitation in ARU. Defer activity level, pain control, anticoagulation and diet as per ARU recommendations. ESBL in urine culture - Patient is still asymptomatic. No dysuria, frequency or urgency. Antibiotics not indicated. Anemia. - Asymptomatic. No sign of active bleeding. Continue to monitor. History of idiopathic thrombocytopenic purpura (ITP) - Status post splenectomy in 2011. labial pressure ulcer from [facility] in [facility] -No open wounds noted. Currently using grace-bottle, hydrocolloid gel which is providing relief. -Started on Keflex 500 mg by mouth twice a day on 12/26/18. Antibiotic coverage for 5-7 days to cover skin infection. -Bedside debridement performed on 12/28/2018 Dr. Israel -We'll continue to monitor Hyperlipidemia. On statin. Osteoporosis. The patient is on calcium and vitamin D. Deep vein thrombosis (DVT) prophylaxis. The patient is currently on Xarelto. VS, I&O, 24H, Fishbone Vital Signs/I&O Vital Signs Date Time Temp Pulse Resp B/P (MAP) Pulse Ox O2 Delivery O2 Flow Rate FiO2 12/30/18 06:00 97.9 95 18 129/64 (85) 96 I&O- Last 24 Hours up to 6 AM 12/30/18 06:00 Intake Total 2340 ml Balance 2340 ml Laboratory Data 24H LABS Laboratory Tests 2 12/30/18 06:48: Immature Granulocyte % (Auto) 0.5, White Blood Count 7.8, Red Blood Count 3.32L, Hemoglobin 10.5L, Hematocrit 33.2L, Mean Corpuscular Volume 100.0H, Mean Corpuscular Hemoglobin 31.6, Mean Corpuscular Hemoglobin Concent 31.6L, Red Cell Distribution Width 15.9H, Platelet Count 754H, Neutrophils (%) (Auto) 57.8, Lymphocytes (%) (Auto) 25.2, Monocytes (%) (Auto) 10.6H, Eosinophils (%) (Auto) 5.0H, Basophils (%) (Auto) 0.9, Neutrophils # (Auto) 4.5, Lymphocytes # (Auto) 2.0, Monocytes # (Auto) 0.8, Eosinophils # (Auto) 0.4, Basophils # (Auto) 0.1, Nucleated Red Blood Cells % (auto) 0.0, Anion Gap 5L, Glomerular Filtration Rate > 60.0, Blood Urea Nitrogen 19H, Creatinine 0.78, Sodium Level 141, Potassium Level 4.9, Chloride Level 108H, Carbon Dioxide Level 28, Calcium Level 9.3 CBC/BMP Laboratory Tests 12/30/18 06:48 Red Blood Count 3.32 L, Mean Corpuscular Volume 100.0 H, Mean Corpuscular Hemoglobin 31.6, Mean Corpuscular Hemoglobin Concent 31.6 L, Red Cell Di stribution Width 15.9 H, Neutrophils (%) (Auto) 57.8, Lymphocytes (%) (Auto) 25.2, Monocytes (%) (Auto) 10.6 H, Eosinophils (%) (Auto) 5.0 H, Basophils (%) (Auto) 0.9, Neutrophils # (Auto) 4.5, Lymphocytes # (Auto) 2.0, Monocytes # (Auto) 0.8, Eosinophils # (Auto) 0.4, Basophils # (Auto) 0.1, Calcium Level 9.3 Microbiology Microbiology 12/22/18 Urine Culture - Final, Complete E.coli Esbl GME ATTESTATION GME ATTESTATION My faculty preceptor for this patient encounter was physically present during the encounter and was fully available. All aspects of the patient interview, examination, medical decision making process, and medical care plan development were reviewed and approved by the faculty preceptor. The faculty preceptor is aware and concurs with the plan as stated in the body of this note and will attest to such by his/her cosignature. MYNOR PENALOZA DO Dec 30, 2018 11:50
[2018-12-30 14:00] VITALS: BP 120/57
[2018-12-30] MEDS: RIVAROXABAN 10 MG TAB (XARELTO) PO SCH (17:57)
[2018-12-30] MEDS ORDERED: ANALGESIC BALM CRM 120 GM TOP PRN (18:45)
[2018-12-30] MEDS ORDERED: BOUDREAUX'S BUTT PASTE 4OZ TOP PRN (18:45)
[2018-12-30 20:00] VITALS: BP 115/56
[2018-12-30] MEDS: traZODone 25MG PER 1/2 TABLET PO SCH (20:51)
[2018-12-30] MEDS: SIMVASTATIN 10 MG TAB PO SCH (20:52)
[2018-12-31 06:00] VITALS: BP 122/61
[2018-12-31 06:56] LABS: BASO # 0.1 10^3/uL (0.0-0.2); BASO % 1.3 % (0.0-1.0); EOS # 0.4 10^3/uL (0.0-0.50); EOS % 5.9 % (0.0-3.0); HEMATOCRIT 29.4 % (36.0-47.0); HEMOGLOBIN 9.5 g/dl (12.0-15.5); LYMPH # 1.4 10^3/uL (1.5-4.5); LYMPH % 18.7 % (24.0-44.0); MEAN CORPUSCULAR HGB CONC 32.3 g/dl (32.0-36.5); MONO % 12.7 % (0.0-5.0); NEUTROPHILS # 4.6 10^3/uL (1.8-7.7); NEUTROPHILS % 60.9 % (36.0-66.0); PLATELET COUNT, AUTOMATED 720 10^3/uL (150-450); RED BLOOD COUNT 2.97 10^6/uL (4.00-5.40); WHITE BLOOD COUNT 7.5 10^3/uL (4.0-10.0)
[2018-12-31 07:12] LABS: BLOOD UREA NITROGEN 21 MG/DL (7-18); CALCIUM LEVEL 8.5 MG/DL (8.8-10.2); CARBON DIOXIDE LEVEL 26 MEQ/L (21-32); CHLORIDE LEVEL 111 MEQ/L (98-107); CREATININE FOR GFR 0.77 MG/DL (0.55-1.30); GLOMERULAR FILTRATION RATE > 60.0 (>45); GLUCOSE, FASTING 87 MG/DL (70-100); POTASSIUM SERUM 4.2 MEQ/L (3.5-5.1); SODIUM LEVEL 144 MEQ/L (136-145)
[2018-12-31] MEDS: DOCUSATE SODIUM 100 MG CAP PO SCH ×2 (09:00→21:00)
[2018-12-31] MEDS: ACETAMINOPHEN 500 MG TAB PO SCH ×3 (09:02→21:26)
[2018-12-31] MEDS: CEPHALEXIN 500 MG CAP PO SCH ×2 (09:02→21:25)
[2018-12-31] MEDS: CALCIUM/VITAMIN D 500 MG TAB PO SCH ×2 (09:02→21:25)
[2018-12-31] MEDS: GABAPENTIN 100 MG CAP PO SCH ×3 (09:02→21:24)
[2018-12-31] MEDS: PANTOPRAZOLE 40MG TAB (PROTONIX) PO SCH (09:02)
[2018-12-31] MEDS: TIMOLOL MALEATE 0.5% OPHTH SOLN 5 ML OU SCH (09:03)
[2018-12-31] MEDS: MAGNESIUM OXIDE 400 MG TAB (MAG-OX) PO SCH (09:03)
--- NOTE | 2018-12-31 10:18 | IPNPDOC ---
PM&R Progress Note Transport Tech Progress Note DATE OF ADMISSION: Dec 22, 2018 at 12:02 INPATIENT REHABILITATION ADMISSION DAY: # SUBJECTIVE: Patient is a -year-old with . ALLERGIES: See Below MEDICATIONS: Reviewed, see below. OBJECTIVE: VITAL SIGNS: Please see below. PHYSICAL EXAMINATION: GENERAL: [Cachectic, well developed, sitting up in bed, no acute distress]. HEENT: [Normocephalic, atraumatic]. [No facial droop]. [Poor dentition, missing teeth. PERRL, EOMI]. CARDIOVASCULAR: [S1, S2, irregular rate]. [No lower limb edema or calf tenderness]. LUNGS: [Decreased breath sounds, coarse throughout]. ABDOMEN: [Soft, nontender, nondistended. Normoactive bowel sounds throughout]. MUSCULOSKELETAL: MMT: /5 strength proximally bilateral shoulder abduction, forward flexion and bilateral hip flexion. /5 strength bilateral elbow flexion, knee flexion, /5 bilateral elbow extension and knee extension. /5 pharmacy retail support specialist, dorsiflexion, plantar flexion. NEUROLOGICAL: [Alert and oriented times three]. [Answers all question appropriately]. SKIN: . LABORATORY DATA: Reviewed. Please see below. MICROBIOLOGY: Please see below. IMAGING: ASSESSMENT AND PLAN: 1. . 2. . 3. . TIME SPENT: Chart Review, examination and documentation minutes. Allergies Coded Allergies: oxycodone (Unverified Adverse Reaction, Mild, N/V, 12/22/18) Vital Signs Vital Signs Date Time Temp Pulse Resp B/P (MAP) Pulse Ox O2 Delivery O2 Flow Rate FiO2 12/31/18 06:00 98.6 88 18 122/61 (81) 94 Laboratory Data CBC/BMP Laboratory Tests 12/31/18 06:17 Red Blood Count 2.97 L, Mean Corpuscular Volume 99.0 H, Mean Corpuscular Hemoglobin 32.0, Mean Corpuscular Hemoglobin Concent 32.3, Red Cell Distribution Width 16.0 H, Neutrophils (%) (Auto) 60.9, Lymphocytes (%) (Auto) 18.7 L, Monocytes (%) (Auto) 12.7 H, Eosinophils (%) (Auto) 5.9 H, Basophils (%) (Auto) 1.3 H, Neutrophils # (Auto) 4.6, Lymphocytes # (Auto) 1.4 L, Monocytes # (Auto) 1.0 H, Eosinophils # (Auto) 0.4, Basophils # (Auto) 0.1, Calcium Level 8.5 L Labs 24H Laboratory Tests 2 12/31/18 06:17: Immature Granulocyte % (Auto) 0.5, White Blood Count 7.5, Red Blood Count 2.97L, Hemoglobin 9.5L, Hematocrit 29.4L, Mean Corpuscular Volume 99.0H, Mean Corpuscular Hemoglobin 32.0, Mean Corpuscular Hemoglobin Concent 32.3, Red Cell Distribution Width 16.0H, Platelet Count 720H, Neutrophils (%) (Auto) 60.9, Lymphocytes (%) (Auto) 18.7L, Monocytes (%) (Auto) 12.7H, Eosinophils (%) (Auto) 5.9H, Basophils (%) (Auto) 1.3H, Neutrophils # (Auto) 4.6, Lymphocytes # (Auto) 1.4L, Monocytes # (Auto) 1.0H, Eosinophils # (Auto) 0.4, Basophils # (Auto) 0.1, Nucleated Red Blood Cells % (auto) 0.0, Anion Gap 7L, Glomerular Filtration Rate > 60.0, Blood Urea Nitrogen 21H, Creatinine 0.77, Sodium Level 144, Potassium Level 4.2, Chloride Level 111H, Carbon Dioxide Level 26, Calcium Level 8.5L Microbiology Microbiology 12/22/18 Urine Culture - Final, Complete E.coli Esbl Current Medications Current Medications Current Medications Acetaminophen (Tylenol Tab) 650 mg DAILY PRN PO fever/MILD PAIN (PS 1-4); Start 12/22/18 at 14:30 Acetaminophen (Tylenol Tab) 1,000 mg TID PO Last administered on 12/31/18at 09:02; Start 12/22/18 at 16:00 Bacitracin (Bacitracin Oint) apply to right inner labia BID TOP Last administered on 12/27/18at 21:24; Start 12/26/18 at 21:00; Stop 12/29/18 at 10:09; Status DC Bisacodyl (Dulcolax Tab) 5 mg DAILYPRN PRN PO CONSTIPATION; Start 12/22/18 at 14:30 Calcium/Vitamin D (Oscal D) 1,000 mg BID PO Last administered on 12/31/18at 09:02; Start 12/22/18 at 21:00 Cephalexin Monohydrate (Keflex) 500 mg BID PO Last administered on 12/31/18 09:02; Start 12/26/18 at 09:00 Cyclobenzaprine HCl (Flexeril) 5 mg BID PRN PO SPASMS; Start 12/22/18 at 13:00; Stop 12/22/18 at 14:14; Status DC Docusate Sodium (Colace) 100 mg BID PO Last administered on 12/29/18at 09:00; Start 12/22/18 at 21:00 Gabapentin (Neurontin) 100 mg QHS PO Last administered on 12/22/18at 20:40; Start 12/22/18 at 21:00; Stop 12/23/18 at 18:31; Status DC Gabapentin (Neurontin) 100 mg TID PO Last administered on 12/31/18 09:02; Start 12/23/18 at 21:00 Home Med (Med Rec Complete!) ASDIRECTED XX ; Start 12/22/18 at 13:45; Stop 12/22/18 at 13:45; Status DC Magnesium Hydroxide (Milk Of Magnesia) 30 ml DAILYPRN PRN PO CONSTIPATION; Start 12/22/18 at 14:30 Magnesium Oxide (Mag-Ox) 400 mg BID PO Last administered on 12/31/18 09:03; Start 12/22/18 at 21:00 Menthol/Methyl Salicylate (Bengay Cream) apply to top of thi... TID TOP Last administered on 12/29/18at 22:12; Start 12/23/18 at 21:00; Stop 12/30/18 at 18:38; Status DC Menthol/Methyl Salicylate (Bengay Cream) apply to top of thi... TIDP PRN TOP PAIN OR DISCOMFORT; Start 12/30/18 at 18:45 Ondansetron HCl (Zofran) 4 mg Q6HP PRN PO NAUSEA; Start 12/22/18 at 14:30 Oxycodone HCl (Roxicodone, Oxyir) 5 mg Q4HP PRN PO PAIN; Start 12/22/18 at 13:00; Stop 12/22/18 at 14:14; Status DC Pantoprazole Sodium (Protonix) 40 mg DAILY PO Last administered on 4/19/19at 09:02; Start 12/22/18 at 09:00 Rivaroxaban (Xarelto) 10 mg DAILY@18 PO Last administered on 12/30/18 17:57; Start 12/22/18 at 18:00 Simvastatin (Zocor) 10 mg QHS PO ; Start 12/22/18 at 21:00; Stop 12/22/18 at 21:00; Status DC Simvastatin (Zocor) 10 mg QHS PO Last administered on 12/30/18at 20:52; Start 12/22/18 at 21:00 Talc (Baby Powder) apply to inner la... BID TOP Last administered on 12/27/18 21:00; Start 12/26/18 at 21:00; Stop 12/29/18 at 10:09; Status DC Timolol Maleate (Timoptic 0.5% Ophth Diane) 1 drop DAILY OU Last administered on 12/31/18 09:03; Start 12/23/18 at 09:00 Timolol Maleate (Timoptic-Xe 0.5% Ophth Gfs) 1 drop DAILY OU ; Start 12/23/18 at 09:00; Stop 12/23/18 at 11:54; Status DC Tramadol HCl (Ultram) 50 mg Q4HP PRN PO MODERATE PAIN (PS 5-7) Last administered on 12/29/18 07:35; Start 12/22/18 at 14:15 Trazodone HCl (Desyrel) 25 mg QHS PO Last administered on 12/30/18at 20:51; Start 12/29/18 at 21:00 Zinc Oxide (Boudreauxs Butt Paste) apply to sacrum BID TOP Last administered on 12/29/18at 21:00; Start 12/22/18 at 21:00; Stop 12/30/18 at 18:38; Status DC Zinc Oxide (Boudreauxs Butt Paste) apply to sacrum BIDP PRN TOP Red Buttocks; Start 12/30/18 at 18:45 KO POLANCO MD Dec 31, 2018 10:18
[2018-12-31] MEDS ORDERED: PANT40TA3 PO (12:04)
[2018-12-31] MEDS ORDERED: TRAM50TA2 PO (12:04)
[2018-12-31] MEDS ORDERED: SIMV10TA2 PO (12:04)
[2018-12-31] MEDS ORDERED: GABA-1171 PO (12:04)
[2018-12-31 14:00] VITALS: BP 111/56
[2018-12-31] MEDS: traMADol 50 MG TAB PO PRN ×2 (14:29→21:26)
--- NOTE | 2018-12-31 17:19 | IPNPDOC ---
Date Seen The patient was seen on 12/31/18. Progress Note SUBJECTIVE: The patient is seen and examined in the room today. Continues with PT and OT. States that the swelling in her vaginal area is improved. Has no complaints this morning. Denies nausea, vomiting, diarrhea, constipation, chest pain, shortness of breath headaches or lightheadedness. No overnight events were reported. OBJECTIVE: VITAL SIGNS: Listed below. GENERAL: The patient is alert, awake, comfortable. HEENT: Normocephalic, atraumatic. Extraocular motors are grossly intact. Wears corrective lenses. CARDIOVASCULAR: Positive S1, S2. Regular rate. LUNGS: Clear to auscultation bilaterally. ABDOMEN: Soft, nontender. Bowel sounds present. GENITOURINARY: Slightly swollen labia majora erythematous slightly irritated status post debridement no ulcers or blisters noted. Gel-like fluid topical applied. EXTREMITIES: Positive lower extremity edema bilaterally. No active bleeding noted. No bilateral knee joint swelling. No warmth. LABORATORY DATA: Listed below. Microbiology: Urine culture is positive for ESBL. ASSESSMENT AND PLAN: Bilateral femur fractures. - Continue rehabilitation in ARU. Defer activity level, pain control, anticoagulation and diet as per ARU recommendations. ESBL in urine culture - Patient is still asymptomatic. No dysuria, frequency or urgency. Antibiotics not indicated. Anemia. - Asymptomatic. No sign of active bleeding. Continue to monitor. History of idiopathic thrombocytopenic purpura (ITP) - Status post splenectomy in 2011. labial pressure ulcer from [facility] in [facility] -No open wounds noted. Currently using grace-bottle, hydrocolloid gel which is providing relief. -Started on Keflex 500 mg by mouth twice a day on 12/26/18. Antibiotic coverage for 5-7 days to cover skin infection. -Bedside debridement performed on 12/28/2018 Dr. Israel -We'll continue to monitor Hyperlipidemia. On statin. Osteoporosis. The patient is on calcium and vitamin D. Deep vein thrombosis (DVT) prophylaxis. The patient is currently on Xarelto. VS, I&O, 24H, Fishbone Vital Signs/I&O Vital Signs Date Time Temp Pulse Resp B/P (MAP) Pulse Ox O2 Delivery O2 Flow Rate FiO2 12/31/18 14:59 18 12/31/18 14:00 97.2 96 111/56 (74) 96 I&O- Last 24 Hours up to 6 AM 12/31/18 06:00 Intake Total 1200 ml Balance 1200 ml Laboratory Data 24H LABS Laboratory Tests 2 12/31/18 06:17: Immature Granulocyte % (Auto) 0.5, White Blood Count 7.5, Red Blood Count 2.97L, Hemoglobin 9.5L, Hematocrit 29.4L, Mean Corpuscular Volume 99.0H, Mean Corpuscu lar Hemoglobin 32.0, Mean Corpuscular Hemoglobin Concent 32.3, Red Cell Distribution Width 16.0H, Platelet Count 720H, Neutrophils (%) (Auto) 60.9, Lymphocytes (%) (Auto) 18.7L, Monocytes (%) (Auto) 12.7H, Eosinophils (%) (Auto) 5.9H, Basophils (%) (Auto) 1.3H, Neutrophils # (Auto) 4.6, Lymphocytes # (Auto) 1.4L, Monocytes # (Auto) 1.0H, Eosinophils # (Auto) 0.4, Basophils # (Auto) 0.1, Nucleated Red Blood Cells % (auto) 0.0, Anion Gap 7L, Glomerular Filtration Rate > 60.0, Blood Urea Nitrogen 21H, Creatinine 0.77, Sodium Level 144, Potassium Level 4.2, Chloride Level 111H, Carbon Dioxide Level 26, Calcium Level 8.5L CBC/BMP Laboratory Tests 12/31/18 06:17 Red Blood Count 2.97 L, Mean Corpuscular Volume 99.0 H, Mean Corpuscular Hemoglobin 32.0, Mean Corpuscular Hemoglobin Concent 32.3, Red Cell Distribution Width 16.0 H, Neutrophils (%) (Auto) 60.9, Lymphocytes (%) (Auto) 18.7 L, Monocytes (%) (Auto) 12.7 H, Eosinophils (%) (Auto) 5.9 H, Basophils (%) (Auto) 1.3 H, Neutrophils # (Auto) 4.6, Lymphocytes # (Auto) 1.4 L, Monocytes # (Auto) 1.0 H, Eosinophils # (Auto) 0.4, Basophils # (Auto) 0.1, Calcium Level 8.5 L Microbiology Microbiology 12/22/18 Urine Culture - Final, Complete E.coli Esbl GME ATTESTATION GME ATTESTATION My faculty preceptor for this patient encounter was physically present during the encounter and was fully available. All aspects of the patient interview, examination, medical decision making process, and medical care plan development were reviewed and approved by the faculty preceptor. The faculty preceptor is aware and concurs with the plan as stated in the body of this note and will attest to such by his/her cosignature. MYNOR PENALOZA DO Dec 31, 2018 17:19
[2018-12-31] MEDS: RIVAROXABAN 10 MG TAB (XARELTO) PO SCH (17:22)
[2018-12-31] MEDS: traZODone 25MG PER 1/2 TABLET PO SCH (21:24)
[2018-12-31] MEDS: SIMVASTATIN 10 MG TAB PO SCH (21:25)
[2018-12-31] MEDS: LIDOCAINE 5% (LIDODERM) PATCH TD SCH (21:27)
[2018-12-31 21:30] VITALS: BP 125/65
[2019-01-01 05:40] VITALS: BP 120/57
[2019-01-01] MEDS: **NOTE PATIENT COMMENT** MISC XX SCH (09:00)
[2019-01-01] MEDS: CALCIUM/VITAMIN D 500 MG TAB PO SCH ×2 (09:23→22:16)
[2019-01-01] MEDS: GABAPENTIN 100 MG CAP PO SCH ×3 (09:23→22:17)
[2019-01-01] MEDS: CEPHALEXIN 500 MG CAP PO SCH (09:23)
[2019-01-01] MEDS: DOCUSATE SODIUM 100 MG CAP PO SCH ×2 (09:23→21:00)
[2019-01-01] MEDS: PANTOPRAZOLE 40MG TAB (PROTONIX) PO SCH (09:23)
[2019-01-01] MEDS: ACETAMINOPHEN 500 MG TAB PO SCH ×3 (09:23→22:17)
[2019-01-01] MEDS: TIMOLOL MALEATE 0.5% OPHTH SOLN 5 ML OU SCH (09:24)
--- NOTE | 2019-01-01 12:39 | IPNPDOC ---
Date Seen The patient was seen on 01/01/19. Progress Note SUBJECTIVE: The patient is seen and examined in the room today.. Has no complaints this morning. Vaginal burning has improved. She has no PT OT schedule today. She is using the skills they have taught her to do chores around the room and to do daily tasks. She has no complaints. She has an anticipated discharge of ThursdayJanuary 03. Denies nausea, vomiting, diarrhea, constipation, chest pain, shortness of breath headaches or lightheadedness. No overnight events were reported. OBJECTIVE: VITAL SIGNS: Listed below. GENERAL: The patient is alert, awake, comfortable. HEENT: Normocephalic, atraumatic. Extraocular motors are grossly intact. Wears corrective lenses. CARDIOVASCULAR: Positive S1, S2. Regular rate. LUNGS: Clear to auscultation bilaterally. ABDOMEN: Soft, nontender. Bowel sounds present. GENITOURINARY: Exam deferred today EXTREMITIES: Positive lower extremity edema bilaterally. No active bleeding noted. No bilateral knee joint swelling. No warmth. LABORATORY DATA: Listed below. Microbiology: Urine culture is positive for ESBL. ASSESSMENT AND PLAN: Bilateral femur fractures. - Continue rehabilitation in ARU. Defer activity level, pain control, anticoagulation and diet as per ARU recommendations. ESBL in urine culture - Patient is still asymptomatic. No dysuria, frequency or urgency. Antibiotics not indicated. Anemia. - Asymptomatic. No sign of active bleeding. Continue to monitor. History of idiopathic thrombocytopenic purpura (ITP) - Status post splenectomy in 2011. labial pressure ulcer from [facility] in [facility] -c/w grace-bottle, hydrocolloid gel which is providing relief. -Keflex 500 mg by mouth twice a day will complete today -Bedside debridement performed on 12/28/2018 Dr. Israel Hyperlipidemia. On statin. Osteoporosis. The patient is on calcium and vitamin D. Deep vein thrombosis (DVT) prophylaxis. The patient is currently on Xarelto. VS, I&O, 24H, Fishbone Vital Signs/I&O Vital Signs Date Time Temp Pulse Resp B/P (MAP) Pulse Ox O2 Delivery O2 Flow Rate FiO2 01/01/19 05:40 97.2 84 18 120/57 (78) 92 I&O- Last 24 Hours up to 6 AM 01/01/19 06:00 Intake Total 720 ml Balance 720 ml Laboratory Data Microbiology Microbiology 12/22/18 Urine Culture - Final, Complete E.coli Esbl GME ATTESTATION GME ATTESTATION My faculty preceptor for this patient encounter was physically present during the encounter and was fully available. All aspects of the patient interview, examination, medical decision making process, and medical care plan development were reviewed and approved by the faculty preceptor. The faculty preceptor is aware and concurs with the plan as stated in the body of this note and will attest to such by his/her cosignature. MYNOR PENALOZA DO Jan 01, 2019 12:39
[2019-01-01 14:00] VITALS: BP 128/57
[2019-01-01] MEDS: RIVAROXABAN 10 MG TAB (XARELTO) PO SCH (17:03)
[2019-01-01 20:00] VITALS: BP 123/66
[2019-01-01] MEDS: SIMVASTATIN 10 MG TAB PO SCH (22:16)
[2019-01-01] MEDS: traZODone 25MG PER 1/2 TABLET PO SCH (22:16)
[2019-01-01] MEDS: traMADol 50 MG TAB PO PRN (22:16)
[2019-01-01] MEDS: LIDOCAINE 5% (LIDODERM) PATCH TD SCH (22:18)
[2019-01-02 05:17] VITALS: BP 132/68
[2019-01-02] MEDS: traMADol 50 MG TAB PO PRN (06:21)
[2019-01-02] MEDS: **NOTE PATIENT COMMENT** MISC XX SCH (09:00)
[2019-01-02] MEDS: DOCUSATE SODIUM 100 MG CAP PO SCH ×2 (09:00→21:00)
--- NOTE | 2019-01-02 09:09 | REP ---
Bilateral lower extremity deep vein duplex ultrasound: The deep veins demonstrate normal compression, normal Doppler color flow and normal Doppler waveforms with respiration and augmentation from the popliteal veins to the common femoral veins bilaterally . Impression: There is no deep vein thrombus in the right or left lower extremities. Electronically Signed by Shawn Shah MD 01/01/2019 08:08 A
[2019-01-02] MEDS: GABAPENTIN 100 MG CAP PO SCH ×3 (09:18→21:53)
[2019-01-02] MEDS: CALCIUM/VITAMIN D 500 MG TAB PO SCH ×2 (09:18→21:53)
[2019-01-02] MEDS: PANTOPRAZOLE 40MG TAB (PROTONIX) PO SCH (09:18)
[2019-01-02] MEDS: TIMOLOL MALEATE 0.5% OPHTH SOLN 5 ML OU SCH (09:19)
[2019-01-02] MEDS: ACETAMINOPHEN 500 MG TAB PO SCH ×3 (09:20→21:53)
[2019-01-02 14:00] VITALS: BP 109/55
[2019-01-02] MEDS: RIVAROXABAN 10 MG TAB (XARELTO) PO SCH (17:35)
--- NOTE | 2019-01-02 17:38 | IPNPDOC ---
Date Seen The patient was seen on 01/02/19. Progress Note SUBJECTIVE: Patient complains of pain in her calves bilaterally, she denies dysuria fevers chills chest pain or shortness of breath OBJECTIVE: VITAL SIGNS: Please see below GENERAL: The patient is alert, awake, comfortable. Very pleasant HEENT: Normocephalic, atraumatic. Extraocular motors are grossly intact. Wears corrective lenses. CARDIOVASCULAR: Positive S1, S2. Regular rate. LUNGS: Clear to auscultation bilaterally. ABDOMEN: Soft, nontender. Bowel sounds present. GENITOURINARY: Exam deferred today EXTREMITIES: Positive lower extremity edema bilaterally. No active bleeding noted. . LABORATORY DATA: Listed below. Microbiology: Urine culture is positive for ESBL. ASSESSMENT AND PLAN: Lower extremity edema: Etiology is not immediately clear certainly could be postsurgical inflammation however she does have some pain associated with it, she does not have significant liver disease or kidney disease normally takes hydrochlorothiazide at home she tells me. I will check an echocardiogram with concern for fluid overload state. And we'll start her on Lasix by mouth. We'll monitor renal function and volume status closely I would ideally like to get her neck negative and as such I'll place her on a salt and fluid restriction and monitor her weight daily ESBL in urine culture patient is asymptomatic. No dysuria, frequency or urgency. No treatment required Anemia. Asymptomatic. Postsurgical simply monitor for now History of idiopathic thrombocytopenic purpura (ITP): Status post splenectomy in 2011. Patient is actively with thrombocytosis I suspect indicative of a active bone marrow in response to her anemia labial pressure ulcer from [facility] in [facility]:c/w grace-bottle, hydrocolloid gel which is providing relief. Bedside debridement performed on 12/28/2018 Dr. Israel Hyperlipidemia. On statin. Osteoporosis. The patient is on calcium and vitamin D. Bilateral surgeries management as per orthopedics and physiatry Mood disorder continue with trazodone daily at bedtime Deep vein thrombosis (DVT) prophylaxis. The patient is currently on Xarelto. VS, I&O, 24H, Fishbone Vital Signs/I&O Vital Signs Date Time Temp Pulse Resp B/P (MAP) Pulse Ox O2 Delivery O2 Flow Rate FiO2 01/02/19 14:00 97.3 81 18 109/55 (73) 95 I&O- Last 24 Hours up to 6 AM 01/02/19 06:00 Intake Total 1860 ml Output Total 0 ml Balance 1860 ml STEPHANIA BRANNON MD Jan 02, 2019 17:38
[2019-01-02] MEDS ORDERED: FUROSEMIDE 20 MG TAB PO ONE (17:45)
[2019-01-02 20:00] VITALS: BP 105/66
[2019-01-02] MEDS: LIDOCAINE 5% (LIDODERM) PATCH TD SCH (21:52)
[2019-01-02] MEDS: SIMVASTATIN 10 MG TAB PO SCH (21:53)
[2019-01-02] MEDS: traZODone 25MG PER 1/2 TABLET PO SCH (21:53)
[2019-01-03 06:00] VITALS: BP 122/60
[2019-01-03] MEDS ORDERED: FUROSEMIDE 20 MG TAB PO SCH (06:00)
[2019-01-03] MEDS: traMADol 50 MG TAB PO PRN ×2 (06:22→12:01)
[2019-01-03] MEDS: PANTOPRAZOLE 40MG TAB (PROTONIX) PO SCH (09:00)
[2019-01-03] MEDS: CALCIUM/VITAMIN D 500 MG TAB PO SCH (09:00)
[2019-01-03] MEDS: GABAPENTIN 100 MG CAP PO SCH (09:00)
[2019-01-03] MEDS: DOCUSATE SODIUM 100 MG CAP PO SCH (09:00)
[2019-01-03] MEDS: **NOTE PATIENT COMMENT** MISC XX SCH (09:00)
[2019-01-03] MEDS: TIMOLOL MALEATE 0.5% OPHTH SOLN 5 ML OU SCH (09:01)
[2019-01-03] MEDS: ACETAMINOPHEN 500 MG TAB PO SCH (09:01)
[2019-01-03] MEDS ORDERED: XARE10TA PO (09:18)
--- NOTE | 2019-01-03 12:40 | IPNPDOC ---
Date Seen The patient was seen on 01/03/19. Progress Note SUBJECTIVE: The patient is seen and examined in the room today.. Has no complaints this morning. She is getting discharged later today and has no comp laints. she got her morning dose of lasix for LE edema. Her vaginal irritation has gotten better as well. She is excited to go home. OBJECTIVE: VITAL SIGNS: Listed below. GENERAL: The patient is alert, awake, comfortable. HEENT: Normocephalic, atraumatic. Extraocular motors are grossly intact. Wears corrective lenses. CARDIOVASCULAR: Positive S1, S2. Regular rate. LUNGS: Clear to auscultation bilaterally. ABDOMEN: Soft, nontender. Bowel sounds present. GENITOURINARY: Exam deferred today EXTREMITIES: Positive lower extremity edema bilaterally 1+ mid calf. No active bleeding noted. No bilateral knee joint swelling. No warmth. LABORATORY DATA: Listed below. Microbiology: Urine culture is positive for ESBL. ASSESSMENT AND PLAN: Bilateral femur fractures. - Continue rehabilitation in ARU. Defer activity level, pain control, anticoagulation and diet as per ARU recommendations. Bilateral lower extremity edema -Can be secondary to recent bilateral femur fractures versus decreased utilization of calf muscles currently using a walker -Recommend Lasix 20 mg PO daily upon discharge. -Should consider with PCP about echocardiogram because of the fluid overload state to see if she has underlying CHF ESBL in urine culture - Patient is still asymptomatic. No dysuria, frequency or urgency. Antibiotics not indicated. Anemia. - Asymptomatic. No sign of active bleeding. Continue to monitor. History of idiopathic thrombocytopenic purpura (ITP) - Status post splenectomy in 2011. labial pressure ulcer from [facility] in [facility] -c/w grace-bottle, hydrocolloid gel which is providing relief. -Keflex 500 mg by mouth twice a day will complete today -Bedside debridement performed on 12/28/2018 Dr. Israel Hyperlipidemia. On statin. Osteoporosis. The patient is on calcium and vitamin D. Deep vein thrombosis (DVT) prophylaxis. The patient is currently on Xarelto. VS, I&O, 24H, Fishbone Vital Signs/I&O Vital Signs Date Time Temp Pulse Resp B/P (MAP) Pulse Ox O2 Delivery O2 Flow Rate FiO2 01/03/19 12:01 18 01/03/19 06:00 97.7 89 122/60 (80) 97 I&O- Last 24 Hours up to 6 AM 01/03/19 06:00 Intake Total 1640 ml Balance 1640 ml GME ATTESTATION GME ATTESTATION My faculty preceptor for this patient encounter was physically present during the encounter and was fully available. All aspects of the patient interview, examination, medical decision making process, and medical care plan development were reviewed and approved by the faculty preceptor. The faculty preceptor is aware and concurs with the plan as stated in the body of this note and will attest to such by his/her cosignature. MYNOR PENALOZA DO Jan 03, 2019 12:40
== END 2019-01-03 12:25 | disposition home health service (06) | DRG 560 ==
LOC: M PM&R 12:02
PROVIDERS: ADMIT Physical Medicine & Rehabilitation; ATTEND Physical Medicine & Rehabilitation
PROC: 0HD9XZZ Extraction of Perineum Skin, External Approach (ICD-10-PCS; principal; 2018-12-28)
DX: S72.321D Displaced transverse fracture of shaft of right femur, subsequent encounter for closed fracture with routine healing (principal); D69.3 Immune thrombocytopenic purpura; S72.22XD Displaced subtrochanteric fracture of left femur, subsequent encounter for closed fracture with routine healing; M81.0 Age-related osteoporosis without current pathological fracture; D64.9 Anemia, unspecified; L89.899 Pressure ulcer of other site, unspecified stage; E78.5 Hyperlipidemia, unspecified; N90.89 Other specified noninflammatory disorders of vulva and perineum; M62.838 Other muscle spasm; W19.XXXD Unspecified fall, subsequent encounter; Y92.009 Unspecified place in unspecified non-institutional (private) residence as the place of occurrence of the external cause; Z79.899 Other long term (current) drug therapy; Z88.5 Allergy status to narcotic agent

== ENCOUNTER → 2019-08-09 | Outpatient (CLI) | payer MEDICARE, OTHER ==
[~2019-08-09] MED LIST changes: +CYCL5TAB PO; +GABA-1171 PO; +PANT40TA3 PO; -SIMV10TA2 PO; +SIMV10TA21 PO; +TIMO0.5S29 OU; +TIMOXEOPD OU; +TRAM50TA2 PO; +XARE10TA PO
--- NOTE | 2019-08-09 12:34 | REPMRS ---
Patient History The patient states she had a clinical breast exam in 2018. No known family history of cancer. 3D TOMOSYNTHESIS WAS PERFORMED. [facility] lifetime [facility] for breast cancer is 5.8%. Digital Mammo Screening Bilat: August 09, 2019 - Exam #: [id number] Bilateral CC and MLO view(s) were taken. Technologist: Miley Cortez, Technologist Prior study comparison: July 30, 2018, bilateral digital woman screen mammo, performed at [facility]. July 29, 2017, digital woman screen mammo, performed at [facility]. FINDINGS: There are scattered fibroglandular densities. There has been no change in the appearance of the mammogram from the prior studies. There is a mild amount of residual fibroglandular tissue which is fairly symmetric. There is no interval development of dominant mass, architectural distortion, or clustered microcalcification suggestive of malignancy. Assessment: BI-RADS/ACR category 1 mammogram. Negative Mammogram. Recommendation Routine screening mammogram in 1 year (for women over age 40). This mammogram was interpreted with the aid of an FDA-approved computer-aided dectection system. Electronically Signed By: Shawn Iniguez MD 08/09/19 0921
== END ==
LOC: M RAD 07:36
PROVIDERS: ATTEND Internal Medicine
DX: Z12.31 Encounter for screening mammogram for malignant neoplasm of breast (principal)

== ENCOUNTER → 2020-08-20 | Outpatient (CLI) | payer OTHER ==
[~2020-08-20] MED LIST changes: +PANT40TA29 PO; -PANT40TA3 PO
--- NOTE | 2020-08-20 10:10 | REPMRS ---
Patient History The patient states she had a clinical breast exam in August 2020. No known family history of cancer. Digital Woman Screen Mammo: August 20, 2020 - Exam #: [id number] Bilateral CC and MLO view(s) were taken. Technologist: Marlee Dietz Technologist Prior study comparison: August 09, 2019, bilateral digital mammo screening bilat, performed at [facility]. July 30, 2018, bilateral digital woman screen mammo performed at [facility]. July 29, 2017, digital woman screen mammo performed at [facility]. FINDINGS: There are scattered fibroglandular densities. The Volpara volumetric breast density category is:B. There has been no change in the appearance of the mammogram from the prior studies. There is a mild amount of scattered fibroglandular density which is fairly symmetric. There is no interval development of dominant mass, architectural distortion, or grouped microcalcification suggestive of malignancy. 3-D tomosynthesis shows no additional findings. Assessment: BI-RADS/ACR category 1 mammogram. Negative Mammogram. Recommendation Routine screening mammogram of both breasts in 1 year (for women over age 40). This patient's [facility] Lifetime Breast Cancer Risk is estimated at 5.5 %. This mammogram was interpreted with the aid of an FDA-approved computer-aided dectection system. Electronically Signed By: Rony Vences MD 08/20/20 [id number]
== END ==
LOC: M WHC 07:49
PROVIDERS: ATTEND Internal Medicine
DX: Z12.31 Encounter for screening mammogram for malignant neoplasm of breast (principal)

== ENCOUNTER → 2020-12-12 | Outpatient (CLI) | payer OTHER ==
--- NOTE | 2020-12-12 09:25 | REP ---
INDICATION: DIZZINESS / GIDDINESS COMPARISON: None. TECHNIQUE: Iniguez scale and color Doppler evaluation using linear high frequency transducer Findings: FINDINGS: Two-dimensional iniguez scale and color images demonstrate normal arterial lumen with laminar flow and no appreciable narrowing. Color Doppler interrogation demonstrates normal arterial wave patterns and velocities with no significant spectral broadening. Normal flow direction is appreciated in the bilateral vertebral arteries. ICA peak systolic velocity: Right 88.0 cm/s; Left 75.0 cm/s ICA diastolic velocity: Right 37.0 cm/s; Left 26.0 cm/s ECA peak systolic velocity: Right 73.0 cm/s; Left 70.0 cm/s CCA peak systolic velocity: Right 112.0 cm/s; Left 86.0 cm/s ICA/CCA ratio: Right 0.78 cm/s; Left 0.87 cm/s Incidental complex nodule in the right thyroid lobe. IMPRESSION: No hemodynamically significant areas of narrowing or stenosis appreciated. Based on set standards narrowing falls within the normal/less than 50% range. <Electronically signed by Goran Torres > 12/12/20 0921
== END ==
LOC: M RAD 07:18
PROVIDERS: ATTEND Internal Medicine
DX: R42 Dizziness and giddiness (principal)

== ENCOUNTER → 2021-09-26 | Outpatient (CLI) | payer OTHER | LOC: M WHC 07:10 | PROVIDERS: ATTEND Internal Medicine | DX: Z12.31 Encounter for screening mammogram for malignant neoplasm of breast (principal) ==

== ENCOUNTER → 2022-07-31 | Outpatient (CLI) | payer OTHER ==
[~2022-07-31] MED LIST changes: +ALEN70TA87 PO; -FOSA70TA PO
== END ==
LOC: M RAD 09:50
PROVIDERS: ATTEND Student in an Organized Health Care Education/Training Program
DX: M25.551 Pain in right hip (principal); Z87.81 Personal history of (healed) traumatic fracture

== ENCOUNTER → 2022-09-29 | Outpatient (CLI) | payer OTHER | LOC: M WHC 11:32 | PROVIDERS: ATTEND Internal Medicine | DX: Z12.31 Encounter for screening mammogram for malignant neoplasm of breast (principal) ==

== ENCOUNTER → 2023-02-16 | Outpatient (CLI) | payer OTHER ==
[~2023-02-16] MED LIST changes: +TIMO0.5S20 OU; -TIMO0.5S29 OU
== END ==
LOC: M RAD 18:07
PROVIDERS: ATTEND Physician Assistant Medical
DX: M19.072 Primary osteoarthritis, left ankle and foot (principal)

== ENCOUNTER → 2024-03-09 | Outpatient (CLI) | payer OTHER | LOC: M WHC 10:01 | PROVIDERS: ATTEND Internal Medicine | DX: Z12.31 Encounter for screening mammogram for malignant neoplasm of breast (principal) ==

== ENCOUNTER → 2024-11-29 | Outpatient (REF) | payer OTHER ==
[~2024-11-29] MED LIST changes: -CYCL5TAB PO; +CYCL5TAB4 PO
== END ==
LOC: M LAB REF 12:03
PROVIDERS: ATTEND Physician Assistant
DX: R30.0 Dysuria (principal)

== ENCOUNTER → 2025-04-05 | Outpatient (CLI) | payer MEDICARE | LOC: M WHC 07:29 | PROVIDERS: ATTEND Internal Medicine | DX: Z12.31 Encounter for screening mammogram for malignant neoplasm of breast (principal); M81.0 Age-related osteoporosis without current pathological fracture ==

== ENCOUNTER → 2025-04-24 | Outpatient (CLI) | payer MEDICARE | LOC: M WUC 13:39 | PROVIDERS: ATTEND Student in an Organized Health Care Education/Training Program | DX: M25.572 Pain in left ankle and joints of left foot (principal) ==